=== PATIENT | female | born 1950 | race Caucasian/White ===

== ENCOUNTER 2017-03-08 10:31 | Inpatient (IN) | payer MEDICARE, SELFPAY | END 2017-03-10 13:20 | disposition home or self-care (01) | DRG 247 | PROVIDERS: Admitting Provider Family Medicine; Emergency Provider Emergency Medicine; Family Provider Family Medicine; Visit Provider Family Medicine | DX: I25.110 Atherosclerotic heart disease of native coronary artery with unstable angina pectoris (principal); E87.6 Hypokalemia; I10 Essential (primary) hypertension; I35.0 Nonrheumatic aortic (valve) stenosis | CPT/HCPCS: 36415; 70450; 80048; 80053; 82550; 82553; 84484; 85025; 92928; 93005; 93041; 93306; 93458; 94640; 94760; 99152; 99284; C1725; C1769; C1876; C9600; G0378; J1644; Q9967 ==

== ENCOUNTER → 2017-03-09 | Day surgery (SDC) | payer MEDICARE, SELFPAY | END | disposition still patient (30) | PROVIDERS: Visit Provider Internal Medicine | DX: R07.9 Chest pain, unspecified (principal) | CPT/HCPCS: 92928; 93458; C9600 ==

== ENCOUNTER 2017-03-20 17:50 | Observation (INO) | payer MEDICARE, SELFPAY ==
[2017-03-20 17:50] VITALS: BMI 29.2
[2017-03-20 20:31] VITALS: PULSE 140
[2017-03-20 20:35] VITALS: BP 124/64; PULSE 128; RESP 18; TEMP 37.3; O2SAT 93
[2017-03-20 20:57] VITALS: PULSE 70
[2017-03-20 21:00] VITALS: BP 126/53; PULSE 65; RESP 18; O2SAT 95
[2017-03-20 22:00] VITALS: BP 115/47; PULSE 58; RESP 23; O2SAT 90
--- NOTE | 2017-03-20 22:20 | HMH.EDGENADL ---
ED Disposition Clinical Impression: CAD (coronary artery disease), Atrial fibrillation with RVR Disposition: Admitted as Observation Condition on Discharge: Good - Critical Care Critical Care Time: No Attestation: On 03/20/17, the high probability of a clinically significant, sudden or life threatening deterioration of the following system(s) required my full and direct attention, intervention and personal management. The time I documented below is in addition to time spent performing reported procedures but includes the following listed in this critical care notation. Medical Decision Making - Medical Records Medical records reviewed: Yes: I reviewed the patient's medical records. Vital Signs: 1750 106/56 130 20 98.7 96% on ra - Lab Data Lab results reviewed: Yes: I reviewed the patient's lab results. MMB 0.1, TNI 0.12, NA 139, K 3.2 LO, CL 87 LO, ECO2 38.2 HI, AGAP 3.8 HI, HIL 111, TBI 0.85, TP 5.9 LO, CKI 68, ALPI 69, ASI 14 LO, ALTI 13, GLUC 101, ALB 3.1 LO, BUN 10, CA 8.0 LO, CRE 1.53 HI PT 10.6, INR 0.98, PTT 25.2 - ECG Data Tracing #1 I reviewed this ECG and interpreted as documented below: Atrial fibrillation RUR [address] segment inferior subendocardial infarction ECG initial impression date: 03/20/17 ECG initial impression time: 17:55 - Physician Consults Physician Consulted: Marvin Time: 19:30 Reason -: Admission, Pt condition Comment/Response: Accepted admission Additional Consult: Sukhwinder Time: 19:31 Reason -: Admission, Pt condition, Cardiology Eval/Care - Jeffrey Inquiry Pt receiving controlled substance: No General Adult HPI - General Chief complaint: Syncope Stated complaint: weakness,syncope Time Seen by Provider: 03/20/17 18:00 Mode of Arrival: EMS Source of Information: Patient, Spouse Limitations: No Limitations Description of Symptoms (Recalled from ER Triage Doc. by RN): Syncope episode x 2 at home both witnessed. Pt family reports recent hear cath. EMS stated pt afib on monitor - new to pt. Pt states today got dizzy and fainted . reports pt passes out when gets upset. - History of Present Illness HPI narrative: 66 yo w/f s/p cardiac cath stent x2 last week She developed syncope 1-2 minutes EMS arrived was found to be in Afig Onset (ago): hour(s) Radiation: non-radiation, other (no chest pain) Relieving factors: none Exacerbating factors: other Associated symptoms: denies other symptoms, other (feels fine in ER) Treatments prior to arrival: aspirin - Related Data Home Medications Medication Instructions Recorded Confirmed albuterol sulfate 1.25 mg/3 mL 2.5 mg INHALATION Q6H PRN 03/14/17 solution for nebulization amlodipine 5 mg tablet 5 mg PO QDAY 03/14/17 benazepril 20 mg tablet 20 mg PO QDAY 03/14/17 budesonide-formoterol HFA 160 2 puff INHALATION Q12H 03/14/17 mcg-4.5 mcg/actuation aerosol inhaler clopidogrel 75 mg tablet 75 mg PO ONCE 03/14/17 doxepin 10 mg capsule 10 mg PO QHS 03/14/17 escitalopram 20 mg tablet 10 mg PO QDAY 03/14/17 furosemide 40 mg tablet 40 mg PO QDAY 03/14/17 montelukast 10 mg tablet 10 mg PO QHS 03/14/17 pravastatin 80 mg tablet 80 mg PO QHS 03/14/17 spironolactone 25 mg tablet 25 mg PO QAM 03/14/17 tiotropium bromide 18 mcg capsule 1 cap INHALATION QDAY 03/14/17 with inhalation device Allergies Allergy/AdvReac Type Severity Reaction Status Date / Time No Known Allergies Allergy Unverified 03/08/17 10:36 [facility] History I have reviewed the patient's past medical history: Yes Medical History: Reports:: Asthma, Chronic Obstructive Pulmonary Disease (COPD), Coronary Artery Disease, Hyperlipidemia, Hypertension, Transient Ischemic Attacks (TIA), Valvular Heart Disease Other Surgeries: Yes: Other (Cyst removed) Amputation: No Fractures: No - *Social History Smoking Status: Current every day smoker Tobacco Type: cigarettes # Packs/Day (cigarettes): 1 Alcohol Intake: n
--- NOTE | 2017-03-20 22:22 | PC.NURSE ---
ER orders entered by Fly Potter on behalf of Dr. Mederos; retain his written order on chart
[2017-03-20 22:23] LABS: Microscopic, Urine URINE MICROSCOPIC (MICROSCOPIC)
--- NOTE | 2017-03-20 22:24 | ED_ITS ---
ED Disposition Clinical Impression: CAD (coronary artery disease), Atrial fibrillation with RVR Disposition: Admitted as Observation Condition on Discharge: Good - Critical Care Critical Care Time: No Attestation: On 03/20/17, the high probability of a clinically significant, sudden or life threatening deterioration of the following system(s) required my full and direct attention, intervention and personal management. The time I documented below is in addition to time spent performing reported procedures but includes the following listed in this critical care notation. Medical Decision Making - Medical Records Medical records reviewed: Yes: I reviewed the patient's medical records. Vital Signs: 1750 106/56 130 20 98.7 96% on ra - Lab Data Lab results reviewed: Yes: I reviewed the patient's lab results. MMB 0.1, TNI 0.12, NA 139, K 3.2 LO, CL 87 LO, ECO2 38.2 HI, AGAP 3.8 HI, HIL 111, TBI 0.85, TP 5.9 LO, CKI 68, ALPI 69, ASI 14 LO, ALTI 13, GLUC 101, ALB 3.1 LO, BUN 10, CA 8.0 LO, CRE 1.53 HI PT 10.6, INR 0.98, PTT 25.2 - ECG Data Tracing #1 I reviewed this ECG and interpreted as documented below: Atrial fibrillation RUR [address] segment inferior subendocardial infarction ECG initial impression date: 03/20/17 ECG initial impression time: 17:55 - Physician Consults Physician Consulted: Marvin Time: 19:30 Reason -: Admission, Pt condition Comment/Response: Accepted admission Additional Consult: Sukhwinder Time: 19:31 Reason -: Admission, Pt condition, Cardiology Eval/Care - Jeffrey Inquiry Pt receiving controlled substance: No General Adult HPI - General Chief complaint: Syncope Stated complaint: weakness,syncope Time Seen by Provider: 03/20/17 18:00 Mode of Arrival: EMS Source of Information: Patient, Spouse Limitations: No Limitations Description of Symptoms (Recalled from ER Triage Doc. by RN): Syncope episode x 2 at home both witnessed. Pt family reports recent hear cath. EMS stated pt afib on monitor - new to pt. Pt states today got dizzy and fainted . reports pt passes out when gets upset. - History of Present Illness HPI narrative: 66 yo w/f s/p cardiac cath stent x2 last week She developed syncope 1-2 minutes EMS arrived was found to be in Afig Onset (ago): hour(s) Radiation: non-radiation, other (no chest pain) Relieving factors: none Exacerbating factors: other Associated symptoms: denies other symptoms, other (feels fine in ER) Treatments prior to arrival: aspirin - Related Data Home Medications Medication Instructions Recorded Confirmed albuterol sulfate 1.25 mg/3 mL 2.5 mg INHALATION Q6H PRN 03/14/17 solution for nebulization amlodipine 5 mg tablet 5 mg PO QDAY 03/14/17 benazepril 20 mg tablet 20 mg PO QDAY 03/14/17 budesonide-formoterol HFA 160 2 puff INHALATION Q12H 03/14/17 mcg-4.5 mcg/actuation aerosol inhaler clopidogrel 75 mg tablet 75 mg PO ONCE 03/14/17 doxepin 10 mg capsule 10 mg PO QHS 03/14/17 escitalopram 20 mg tablet 10 mg PO QDAY 03/14/17 furosemide 40 mg tablet 40 mg PO QDAY 03/14/17 montelukast 10 mg tablet 10 mg PO QHS 03/14/17 pravastatin 80 mg tablet 80 mg PO QHS 03/14/17 spironolactone 25 mg tablet 25 mg PO QAM 03/14/17 tiotropium bromide 18 mcg capsule 1 cap INHALATION QDAY 03/14/17 with inhalation device Allergies Allergy/AdvReac Type Severity Lizella
[2017-03-20 22:43] VITALS: BMI 29.0
[2017-03-20 23:09] VITALS: O2SAT 88
[2017-03-20 23:31] LABS: Appearance,Urine CLEAR (Clear); Bilirubin,Urine Negative (Negative); Blood, Urine Negative (Negative); Color,Urine YELLOW (Yellow); Glucose,Urine (UA) Negative (Negative); Ketones,Urine Negative (Negative); Leukocyte Esterase,Urine Negative (Negative); Nitrate,Urine Negative (Negative); PH,Urine 7.5 (5.0-8.5); Protein,Urine Negative (Negative); Urobilinogen,Urine 0.2 EU/dl (0.2)
[2017-03-20 23:42] LABS: WBC,Urine Occasional #/hpf (0-3)
[2017-03-20 23:43] LABS: Squamous Epithelial Cell,Urine Occasional #/hpf (0-5)
[2017-03-20 23:48] LABS: Activated Partial Thrombo Time 25.2 seconds (23.6-34.0); INR 0.98 (0.9-1.1); Prothrombin Time 10.6 seconds (9.4-11.8)
[2017-03-21] VITALS (19 sets, daily range): BP systolic 100–168; BP diastolic 45–97; PULSE 53–73; RESP 14–20; TEMP 36.5–37.1; O2SAT 89–100
[2017-03-21 00:02] LABS: Alanine Aminotransferase 13 U/L (12-78); Albumin Level 3.1 gm/dL (3.4-5.0); Albumin/Globulin Ratio 1.1 (1.1-1.8); Alkaline Phosphatase 69 U/L (46-116); Anion Gap 7.2 mEq/L (5-15); Aspartate Amino Transferase 14 U/L (15-37); Bilirubin,Total 0.9 mg/dL (0.2-1.0); Blood Urea Nitrogen 10 mg/dL (7-18); Carbon Dioxide 38 mmol/L (21.0-32.0); Chloride 97 mmol/L (98-107); Creatine Kinase 66 U/L (26-192); Creatinine Clearance Estimated 38 mL/min (0-300); Creatinine,Serum 1.53 mg/dL (0.55-1.02); Estimated Glomerular Filt Rate 34 ml/min (>60); GFR (African American) 41 ML/MIN (>60); Globulin 2.8 gm/dl (1.3-3.2); Glucose 101 mg/dL (74-106); Potassium 3.2 mmoL/L (3.5-5.1); Sodium 139 mmol/L (136-145); Total Protein,Serum 5.9 gm/dL (6.4-8.2); Troponin I < 0.02 ng/ml (0.00-0.06)
[2017-03-21 00:08] LABS: CKMB Relative Index 0.8 U/L (0-4.0); Creatine Kinase MB < 0.5 mg/ml (0.0-3.6)
[2017-03-21 01:01] LABS: Hematocrit 31.9 % (37.0-47.0); Hemoglobin 10.1 g/dL (12.2-16.2); Mean Corpuscular HGB Conc 31.6 g/dL (31.8-35.4); Mean Corpuscular Hemoglobin 30.5 pg (27.0-31.2); Mean Corpuscular Volume 96.4 fl (81-99); Platelet Count 196 K/mm3 (142-424); Red Blood Count 3.31 M/mm3 (4.20-5.40); Red Cell Distribution Width 14.1 % (11.5-17.5); White Blood Count 9.3 K/mm3 (4.8-10.8)
[2017-03-21 01:02] LABS: Basophils % 0.4 % (0.1-2.0); Eosinophils # 0.1 K/mm3 (0.0-0.4); Eosinophils % 0.8 % (0.1-12.0); Lymphocytes # 1.7 K/mm3 (0.7-4.5); Lymphocytes % 17.9 K/mm3 (10-50); Monocytes # 0.8 K/mm3 (0.1-1.0); Monocytes % 8.8 % (1.7-9.3); Neutrophils # 6.5 K/mm3 (1.8-7.8); Neutrophils % 70.7 % (37.0-80.0)
[2017-03-21 02:29] LABS: Troponin I 0.02 ng/ml (0.00-0.06)
--- NOTE | 2017-03-21 04:48 | PC.NURSE ---
PT IS A&OX3. 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 PT REPORTS THAT SHE RECEIVED 2 STENTS A FEW WEEKS AGO. SHE CONVERTED FROM UNCONTROLLED AFIB TO NSR AT APPROX 2100. SHE REPORTS THAT SHE WEARS O2 @ 2LPM N/C AT HOME. VSS. SHE AMBULATES INDEPENDENTLY BUT IS WITH ASSIST X1 DUE TO STATING SHE PASSED OUT AT HOME.
--- NOTE | 2017-03-21 07:16 | HMH.PHAVTE ---
[facility] Pharmacy VTE Monitoring - Patient Demographics Admission date: 03/20/17 Report Date: 03/21/17 Time: 07:16 Allergies/Adverse Reactions: No Known Allergies Allergy (Verified 03/20/17 23:22) Height: 1.52 m Weight: 67.387 kg Patient Problems: Current Active Problems Atrial fibrillation with RVR (Acute) CAD (coronary artery disease) (Chronic) - VTE Risk Labs: VTE Related Lab Results Hgb 10.1 g/dL (12.2-16.2) L 03/20/17 Unknown Hct 31.9 % (37.0-47.0) L 03/20/17 Unknown Plt Count 196 K/mm3 (142-424) 03/20/17 Unknown PT 10.6 seconds (9.4-11.8) 03/20/17 Unknown INR 0.98 (0.9-1.1) 03/20/17 Unknown APTT 25.2 seconds (23.6-34.0) 03/20/17 Unknown BUN 10 mg/dL (7-18) 03/20/17 Unknown Creatinine 1.53 mg/dL (0.55-1.02) H 03/20/17 Unknown Estimated Creat Clear 38 mL/min (0-300) 03/20/17 Unknown Was VTE Risk Assessment Performed: Yes VTE Risk Level: Moderate Risk Clinical Trial Participant: No - Prophylaxis VTE Prophylaxis Ordered?: Yes Types of VTE Prophylaxis: TEDS Knee High, Pharmacological Pharmacologic Type: Enoxaparin
--- NOTE | 2017-03-21 07:56 | HMH.CARDCON2 ---
History of Present Illness Consult date: 03/21/17 Requesting physician: Papa Wong Consult reason: atrial fibrillation Chief complaint: Syncope History of present illness: 66 yo WF admitted through the ER for syncope and A. fib with RVR. Recently hospitalized for syncope at which time she was found to have severe RCA disease and had GHAZAL placed which was felt to be the possible cause of her syncope. Yesterday, after leaving the bathroom, she went to the kitchen (2-3 min time) and felt light headed and passed out. states she was out for a couple of minutes before regaining consciousness. No chest pain or palpitations prior to syncope. Some complaint of chest pain after waking up. No diarrhea or melena recently. No history of A. fib but she has had a TIA in the remote past. In ER, she was found to be in A. fib with RVR and started on IV diltiazem for rate control and subsequently converted to NSR. Cardiac troponins are normal overnight. Review of Systems - Review of Systems Review of systems:: unable to obtain, other, pertinent systems reviewed and negative unless documented below - *Neurologic Reports other (as per HPI) [facility] History I have reviewed the patient's past medical history: Yes Medical History: Reports:: Asthma, Atrial Fibrillation, Chronic Obstructive Pulmonary Disease (COPD), Coronary Artery Disease, Hyperlipidemia, Hypertension, Transient Ischemic Attacks (TIA), Valvular Heart Disease Denies:: Cancer, Diabetes Mellitus Type 1, Diabetes Mellitus Type 2, MRSA Comment: Echo, 02/2017. 1. Technically very difficult study because of the patient's factor and poor. acoustic windows, endocardial surfaces and valvular structures of poorly. visualized. 2. Biatrial enlargement, normal left ventricular size, visually estimated. ejection fraction 50% with no obvious regional wall motion abnormality. 3. Mildly enlarged right atrium and right ventricle, contractility of the right. ventricle is normal. 4. Abnormally aortic valve as described above, Doppler is indicative of mild. aortic stenosis as well as mild aortic insufficiency, however if clinically. indicated transesophageal echocardiogram or repeat study with better Doppler. technique is recommended. 5. Mild mitral and tricuspid regurgitation. 6. Small pericardial effusion and anterior echo free space seen. Cardiac cath, 03/08/2017: 1. Moderate aortic stenosis. 2. Slightly hyperdynamic left ventricular function. 3. Critical ostial dominant right coronary artery disease. 4. Successful stenting of the ostial dominant right coronary artery critical. disease reduced to 0% with 1 drug-eluting stent Laterality Cases: Bilateral: Cataract Other Surgeries: Yes: Other (Cyst removed) Amputation: No Fractures: No - *Social History Smoking Status: Current every day smoker Tobacco Type: cigarettes # Packs/Day (cigarettes): 1 Alcohol Intake: never Substance Use Type: denies use Occupational Status: retired Housing: house Household Members: significant other - Psychiatric History Expresses thoughts of harming self/others: None Suicide Plan Description: No Plan Pschychiatric History:: Reports:: Anxiety *Family Hx:: Heart Attack, Coronary Artery Disease, Diabetes, Hypertension Meds Home Medications Medication Instructions Recorded Confirmed Type amlodipine 5 mg tablet 5 mg PO DAILY 03/14/17 03/21/17 History benazepril 20 mg tablet 20 mg PO BID 03/14/17 03/21/17 History budesonide-formoterol HFA 160 2 puff INHALATION BID 03/14/17 03/21/17 History mcg-4.5 mcg/actuation aerosol inhaler clopidogrel 75 mg tablet 75 mg PO DAILY 03/14/17 03/21/17 History doxepin 10 mg capsule 10 mg PO HS 03/14/17 03/21/17 History escitalopram 20 mg tablet 10 mg PO DAILY 03/14/17 03/21/17 History furosemide 40 mg tablet 40 mg PO DAILY 03/14/17 03/21/17 History montelukast 10 mg tablet 10 mg PO DAILY 03/14/17 03/21/17 History pravastatin 80 mg tablet 80 mg PO HS 03/14/17 03/21/17 History
--- NOTE | 2017-03-21 08:00 | P.CONS_ITS ---
History of Present Illness Consult date: 03/21/17 Requesting physician: Papa Wong Consult reason: atrial fibrillation Chief complaint: Syncope History of present illness: 66 yo WF admitted through the ER for syncope and A. fib with RVR. Recently hospitalized for syncope at which time she was found to have severe RCA disease and had GHAZAL placed which was felt to be the possible cause of her syncope. Yesterday, after leaving the bathroom, she went to the kitchen (2-3 min time) and felt light headed and passed out. states she was out for a couple of minutes before regaining consciousness. No chest pain or palpitations prior to syncope. Some complaint of chest pain after waking up. No diarrhea or melena recently. No history of A. fib but she has had a TIA in the remote past. In ER, she was found to be in A. fib with RVR and started on IV diltiazem for rate control and subsequently converted to NSR. Cardiac troponins are normal overnight. Review of Systems - Review of Systems Review of systems:: unable to obtain, other, pertinent systems reviewed and negative unless documented below - *Neurologic Reports other (as per HPI) [facility] History I have reviewed the patient's past medical history: Yes Medical History: Reports:: Asthma, Atrial Fibrillation, Chronic Obstructive Pulmonary Disease (COPD), Coronary Artery Disease, Hyperlipidemia, Hypertension , Transient Ischemic Attacks (TIA), Valvular Heart Disease Denies:: Cancer, Diabetes Mellitus Type 1, Diabetes Mellitus Type 2, MRSA Comment: Echo, 02/2017. 1. Technically very difficult study because of the patient's factor and poor. acoustic windows, endocardial surfaces and valvular structures of poorly. visualized. 2. Biatrial enlargement, normal left ventricular size, visually estimated. ejection fraction 50% with no obvious regional wall motion abnormality. 3. Mildly enlarged right atrium and right ventricle, contractility of the right. ventricle is normal. 4. Abnormally aortic valve as described above, Doppler is indicative of mild. aortic stenosis as well as mild aortic insufficiency, however if clinically. indicated transesophageal echocardiogram or repeat study with better Doppler. technique is recommended. 5. Mild mitral and tricuspid regurgitation. 6. Small pericardial effusion and anterior echo free space seen. Cardiac cath, : 1. Moderate aortic stenosis. 2. Slightly hyperdynamic left ventricular function. 3. Critical ostial dominant right coronary artery disease. 4. Successful stenting of the ostial dominant right coronary artery critical. disease reduced to 0% with 1 drug-eluting stent Laterality Cases: Bilateral: Cataract Other Surgeries: Yes: Other (Cyst removed) Amputation: No Fractures: No - *Social History Smoking Status: Current every day smoker Tobacco Type: cigarettes # Packs/Day (cigarettes): 1 Alcohol Intake: never Substance Use Type: denies use Occupational Status: retired Housing: house Household Members: significant other - Psychiatric History Expresses thoughts of harming self/others: None Suicide Plan Description: No Plan Pschychiatric History:: Reports:: Anxiety *Family Hx:: Heart Attack, Coronary Artery Disease, Diabetes, Hypertension Meds Home Medications Medication Instructions Recorded Confirmed Type amlodipine 5 mg tablet 5 mg PO DAILY 03/14/17 03/21/17 History benazepril 20 mg tablet 20 mg PO BID 03/14/17 03/21/17 History budesonide-formoterol HFA 160 2 puff INHALATION BID 03/14/17 03/21/17 History mcg-4.5 mcg/actuation aerosol inhaler clopidogrel 75 mg tablet 75
[2017-03-21 08:02] LABS: Anion Gap 6.6 mEq/L (5-15); Blood Urea Nitrogen 10 mg/dL (7-18); Carbon Dioxide 35 mmol/L (21.0-32.0); Chloride 101 mmol/L (98-107); Creatinine Clearance Estimated 44 mL/min (0-300); Creatinine,Serum 1.33 mg/dL (0.55-1.02); Estimated Glomerular Filt Rate 40 ml/min (>60); GFR (African American) 48 ML/MIN (>60); Glucose 85 mg/dL (74-106); Potassium 3.6 mmoL/L (3.5-5.1); Sodium 139 mmol/L (136-145); Troponin I < 0.02 ng/ml (0.00-0.06)
--- NOTE | 2017-03-21 08:33 | HMH.HP ---
*Admission Date: 03/20/17 <Ni Rivas 03/21/17 08:39> *Chief complaint: syncope <Ni Rivas 03/21/17 08:39> *History of present illness: Ms Scanlon is a 66 year old female with a history of CAD with LHC and stent placement 03/10/[address] Pretty, COPD, previous syncope, bradycardia, and CVA who presented to [facility] ER atfter she had a syncopal episode when walking from one room to another. She states she did have some brief CP when she first got OOB. She denies SOB. The witnessed the episode and states she was only out briefly. When checking her O2 sat with their pulse OX he noted her HR going from 40's up to 120's. Thus he he called EMS who brought her to the ER. They documented At fib. In the ER she was found to be in atrial fib with RVR and was started on a cardiazem gtt after which she did convert to a RSR. She was admitted for further evaluation and treatment and cardiac consult. <Ni Riavs 03/21/17 14:10> [facility] History Medical History: Reports:: Asthma, Atrial Fibrillation, Chronic Obstructive Pulmonary Disease (COPD), Coronary Artery Disease, Hyperlipidemia, Hypertension, Transient Ischemic Attacks (TIA), Valvular Heart Disease Denies:: Cancer, Diabetes Mellitus Type 1, Diabetes Mellitus Type 2, MRSA <Ni Rivas 03/21/17 14:10> Comment: history of TIA <Ni Rivas 03/21/17 14:10> Laterality Cases: Bilateral: Cataract <Ni Rivas 03/21/17 08:39> Other Surgeries: Yes: Other (cardiac stent placement 03/10/17) <Ni Rivas 03/21/17 14:10> Amputation: No <Ni Rivas 03/21/17 08:39> Fractures: No <Ni Rivas 03/21/17 08:39> - *Social History Smoking Status: Current every day smoker <Ni Rivas 03/21/17 08:39> Tobacco Type: cigarettes <Ni Rivas 03/21/17 08:39> # Packs/Day (cigarettes): 1 <Ni Rivas 03/21/17 08:39> Alcohol Intake: never <Ni Rivas 03/21/17 08:39> Substance Use Type: denies use <Ni Rivas 03/21/17 08:39> Occupational Status: retired <Ni Rivas 03/21/17 08:39> Housing: house <Ni Rivas 03/21/17 08:39> Household Members: significant other <Ni Rivas 03/21/17 08:39> - Psychiatric History Expresses thoughts of harming self/others: None <Ni Rivas 03/21/17 08:39> Suicide Plan Description: No Plan <Ni Rivas 03/21/17 08:39> Pschychiatric History:: Reports:: Anxiety <Ni Rivas 03/21/17 08:39> *Family Hx:: Heart Attack, Coronary Artery Disease, Diabetes, Hypertension <Ni Rivas 03/21/17 08:39> Review of Systems - Constitutional Denies body ache(s) <RivasNi 03/21/17 13:28> - ENT Denies sore throat <RivasNi 03/21/17 13:28> - *Cardiovascular Reports chest pain, Reports shortness of breath, Reports irregular heart rhythm, Denies leg swelling <EvelynNi 03/21/17 13:28> - *Respiratory Reports shortness of breath, Denies cough <RivasNi 03/21/17 13:28> - *Gastrointestinal Denies abdominal pain, Denies nausea, Denies vomiting <RivasNi 03/21/17 13:28> - *Musculoskeletal Denies abnormal walking, Denies muscle weakness, Denies body aches <RivasNi 03/21/17 13:28> - *Neurologic Reports dizziness, Reports other (as per HPI), Denies headache(s), Denies seizure-like activity <RivasNi 03/21/17 13:28> Comments: syncopal episode <RivasNi 03/21/17 13:28> Meds Home Medications Medication Instructions Recorded Confirmed Type Albuterol Sulfate [Albuterol 2.5 mg IH QID 03/21/17 03/21/17 History 0.083% 2.5mg/3mL neb] Amlodipine Besylate [Norvasc 5mg 5 mg PO DAILY 03/21/17 03/21/17 History tablet] Amoxicillin/Potassium Clav 1 tab PO BID 03/21/17 03/21/17 History [Amox-Clav 875-125 mg Tablet] Aspirin [Aspir-Low] 81 mg PO DAILY 03/21/17 03/21/17 History Benazepril HCl [Benazepril HCl] 20 mg PO DAILY 03/21/17 03/21/17 History Budesonide/Formoterol Fumarate 2 puffs IH BID 03/21/17
--- NOTE | 2017-03-21 08:39 | P.HP_ITS ---
*Admission Date: 03/20/17 <Ni Rivas 03/21/17 08:39> *Chief complaint: syncope <Ni Rivas 03/21/17 08:39> *History of present illness: Ms Scanlon is a 66 year old female with a history of CAD with LHC and stent placement 03/10/[address] Pretty, COPD, previous syncope, bradycardia, and CVA who presented to [facility] ER atfter she had a syncopal episode when walking from one room to another. She states she did have some brief CP when she first got OOB. She denies SOB. The witnessed the episode and states she was only out briefly. When checking her O2 sat with their pulse OX he noted her HR going from 40's up to 120's. Thus he he called EMS who brought her to the ER. They documented At fib. In the ER she was found to be in atrial fib with RVR and was started on a cardiazem gtt after which she did convert to a RSR. She was admitted for further evaluation and treatment and cardiac consult. <Ni Rivas 03/21/17 14:10> [facility] History Medical History: Reports:: Asthma, Atrial Fibrillation, Chronic Obstructive Pulmonary Disease (COPD), Coronary Artery Disease, Hyperlipidemia, Hypertension , Transient Ischemic Attacks (TIA), Valvular Heart Disease Denies:: Cancer, Diabetes Mellitus Type 1, Diabetes Mellitus Type 2, MRSA < Ni Rivas 03/21/17 14:10> Comment: history of TIA <Ni Rivas 03/21/17 14:10> Laterality Cases: Bilateral: Cataract <Ni Rivas 03/21/17 08:39> Other Surgeries: Yes: Other (cardiac stent placement 03/10/17) <Ni Rivas 03/21/17 14:10> Amputation: No <Ni Rivas 03/21/17 08:39> Fractures: No <Ni Rivas 03/21/17 08:39> - *Social History Smoking Status: Current every day smoker <Ni Rivas 03/21/17 08:39> Tobacco Type: cigarettes <Ni Rivas 03/21/17 08:39> # Packs/Day (cigarettes): 1 <Ni Rivas 03/21/17 08:39> Alcohol Intake: never <Ni Rivas 03/21/17 08:39> Substance Use Type: denies use <Ni Rivas 03/21/17 08:39> Occupational Status: retired <Ni Rivas 03/21/17 08:39> Housing: house <Ni Rivas 03/21/17 08:39> Household Members: significant other <Ni Rivas 03/21/17 08:39> - Psychiatric History Expresses thoughts of harming self/others: None <Ni Rivas 03/21/17 08: 39> Suicide Plan Description: No Plan <Ni Rivas 03/21/17 08:39> Pschychiatric History:: Reports:: Anxiety <Ni Rivas 03/21/17 08:39> *Family Hx:: Heart Attack, Coronary Artery Disease, Diabetes, Hypertension < Ni Rivas 03/21/17 08:39> Review of Systems - Constitutional Denies body ache(s) <RivasNi 03/21/17 13:28> - ENT Denies sore throat <RivasNi 03/21/17 13:28> - *Cardiovascular Reports chest pain, Reports shortness of breath, Reports irregular heart rhythm , Denies leg swelling <EvelynNi 03/21/17 13:28> - *Respiratory Reports shortness of breath, Denies cough <RivasNi 03/21/17 13:28> - *Gastrointestinal Denies abdominal pain, Denies nausea, Denies vomiting <RivasNi 13:28> - *Musculoskeletal Denies abnormal walking, Denies muscle weakness, Denies body aches <Rivas Ni 03/21/17 13:28> - *Neurologic Reports dizziness, Reports other (as per HPI), Denies headache(s), Denies seizure-like activity <RivasNi 03/21/17 13:28> Comments: syncopal episode <RivasNi 03/21/17 13:28> Meds Home Medications Medication Instructions Recorded Confirmed Type Albuterol Sulfate [Albuterol 2.5 mg IH QID 03/21/17 03/21/17 History 0.083% 2.5mg/3mL neb] Am
[2017-03-21 09:04] LABS: Free Thyroxine Index 3.2 ug/dL (5.93-13.13); T4 (Thyroxine) 8.9 ug/dl (4.7-13.3); Thyroid Stimulating Hormone 2.66 uIU/ml (0.358-3.740); Triiodothryronine (T3) Uptake 36 % (31-39)
--- NOTE | 2017-03-21 09:46 | CI_ITS ---
Cerebrovascular Exam Indications: 780.2 Syncope and collapse. 433.10 Occlusion/stenosis of carotid artery without cerebral infarction. IMPRESSIONS 1. The bilateral vertebral arteries are patent with normal antegrade flow. 2. Study suggests 20-49%upper end of scale)stenosis involving the right internal carotid artery and the left internal carotid artery. Disease progression from the study of 21-Feb-2012. History: Coronary artery disease. Risk factors: Current tobacco use. Hypertension. Hyperlipidemia. Carotid duplex study. Complete study and Doppler flow study including spectral analysis, color and richardson scale imaging. Height: Height: 152.4cm. Height: 60in. Weight: Weight: 67.1kg. Weight: 147.7lb. Body mass index: BMI: 28.9kg/m^2. Body surface area: BSA: 1.71m^2. Location: Bedside. Patient status: Inpatient. Tables: Arterial flow: + +--------+--------+ Location V sys V ed + +--------+--------+ Right CCA - proximal 86.4cm/s 15.7cm/s + +--------+--------+ Right CCA - distal 89.6cm/s 15.7cm/s + +--------+--------+ Right ECA 220cm/s -------- + +--------+--------+ Right ICA - proximal 155cm/s 30.3cm/s + +--------+--------+ Right ICA - mid 113cm/s 14.6cm/s + +--------+--------+ Right ICA - distal 127cm/s 21.3cm/s + +--------+--------+ Right vertebral 106cm/s -------- + +--------+--------+ Left CCA - proximal 76.3cm/s 16.8cm/s + +--------+--------+ Left CCA - distal 89.8cm/s 16.8cm/s + +--------+--------+ Left ECA 93.2cm/s -------- + +--------+--------+ Left ICA - proximal 112cm/s 19.1cm/s + +--------+--------+ Left ICA - mid 107cm/s 16.8cm/s + +--------+--------+ Left ICA - distal 120cm/s 20.2cm/s + +--------+--------+ Left vertebral 86.4cm/s -------- + +--------+--------+ Velocity ratios: + + + + + + Right, V sys Right, V ed Left, V sys Left, V ed + + + + + + Max ICA/dist CCA 1.73 1.93 1.34 1.2 + + + + + + (Report amended ) Electronically signed by: Pino Azar [id number]
[2017-03-21 11:27] LABS: Magnesium 2.2 mg/dL (1.4-2.2); Phosphorous 3.2 mg/dL (2.4-4.9)
[2017-03-22] VITALS (9 sets, daily range): BP systolic 99–154; BP diastolic 48–60; PULSE 50–94; RESP 16–17; TEMP 36.7–36.8; O2SAT 95–99
--- NOTE | 2017-03-22 06:31 | PC.NURSE ---
pt wants abath later after breakfast. nurse notified
--- NOTE | 2017-03-22 07:50 | HMH.CARDPN2 ---
Subjective PN (PG) Date: 03/22/17 Time: 07:50 Principal diagnosis: A. fib, Syncope Interval history: No complaints overnight. Continues in NSR. Wants to go home. Outpatient JENNIFER has been ordered but is awaiting insurance approval. PN Exam ([facility] [place] Owned) Vital signs: Temp Pulse Resp BP Pulse Ox 98.1 F 64 16 113/60 97 03/22/17 04:17 03/22/17 06:17 03/22/17 04:36 03/22/17 06:17 03/22/17 06:17 - Constitutional no acute distress - Routine Respiratory Exam Present: CTA bilaterally - Routine Cardiovascular Exam Present: RRR, murmur A/P Progress Note ([facility] [place] Owned) (1) Atrial fibrillation with RVR Status: Acute Assessment and plan: Maintaining NSR on cardizem. Xarelto started last evening for elevated CHADS score. Current Visit: Yes (2) CAD (coronary artery disease) Status: Chronic Assessment and plan: Clinically stable on DAPT. Current Visit: Yes (3) Aortic valve stenosis Status: Chronic Assessment and plan: Plan for JENNIFER when approved by insurance. Current Visit: No (4) COPD (chronic obstructive pulmonary disease) Status: Chronic Current Visit: No (5) Carotid artery stenosis Status: Chronic Assessment and plan: Mild to moderate by u/s this admission. Continue ASA. Current Visit: No (6) Dyspnea Status: Chronic Current Visit: No (7) HLD (hyperlipidemia) Status: Chronic Current Visit: No (8) HTN (hypertension) Status: Chronic Current Visit: No (9) Pulmonary emphysema Status: Chronic Current Visit: No (10) Tobacco use Status: Chronic Current Visit: No
--- NOTE | 2017-03-22 07:53 | P.PN_ITS ---
Subjective PN (PG) Date: 03/22/17 Time: 07:50 Principal diagnosis: A. fib, Syncope Interval history: No complaints overnight. Continues in NSR. Wants to go home. Outpatient JENNIFER has been ordered but is awaiting insurance approval. PN Exam ([facility] Owned) Vital signs: Temp Pulse Resp BP Pulse Ox 98.1 F 64 16 113/60 97 03/22/17 04:17 03/22/17 06:17 03/22/17 04:36 03/22/17 06:17 03/22/17 06:17 - Constitutional no acute distress - Routine Respiratory Exam Present: CTA bilaterally - Routine Cardiovascular Exam Present: RRR, murmur A/P Progress Note ([facility] Owned) (1) Atrial fibrillation with RVR Status: Acute Assessment and plan: Maintaining NSR on cardizem. Xarelto started last evening for elevated CHADS score. Current Visit: Yes (2) CAD (coronary artery disease) Status: Chronic Assessment and plan: Clinically stable on DAPT. Current Visit: Yes (3) Aortic valve stenosis Status: Chronic Assessment and plan: Plan for JENNIFER when approved by insurance. Current Visit: No (4) COPD (chronic obstructive pulmonary disease) Status: Chronic Current Visit: No (5) Carotid artery stenosis Status: Chronic Assessment and plan: Mild to moderate by u/s this admission. Continue ASA. Current Visit: No (6) Dyspnea Status: Chronic Current Visit: No (7) HLD (hyperlipidemia) Status: Chronic Current Visit: No (8) HTN (hypertension) Status: Chronic Current Visit: No (9) Pulmonary emphysema Status: Chronic Current Visit: No (10) Tobacco use Status: Chronic Current Visit: No
--- NOTE | 2017-03-22 08:40 | HMH.ACPN ---
Internal Medicine - PN: Subj *Date: 03/22/17 *Time: 08:40 Interval history: Patient with no new complaints today, wants to go home. Exam Vital signs and Labs for Last 24 Hours: Temp Pulse Resp BP Pulse Ox 98.1 F 64 16 113/60 97 03/22/17 04:17 03/22/17 06:17 03/22/17 04:36 03/22/17 06:17 03/22/17 06:17 Laboratory Results - last 24 hr 03/21/17 07:40: TSH 2.66, Free T4 Index 3.2 L, Thyroxine (T4) 8.9, T3 Uptake 36 03/21/17 07:40: Phosphorus 3.2, Magnesium 2.2 Vital Signs Temp Pulse Pulse Pulse Resp BP Pulse Ox 03/22/17 06:17 64 113/60 97 03/22/17 04:36 64 16 154/60 97 03/22/17 04:17 98.1 F 03/22/17 04:00 60 94 H 97 03/22/17 03:30 50 L 03/22/17 02:00 50 L 17 114/48 95 03/22/17 00:21 98.2 F 03/22/17 00:00 50 L 57 L 99/60 99 03/21/17 22:00 70 17 100/53 100 03/21/17 20:04 97.7 F 03/21/17 20:00 60 63 168/74 96 03/21/17 17:05 64 20 138/58 99 03/21/17 16:00 98.3 F 60 61 18 124/64 100 03/21/17 15:33 63 20 143/53 99 03/21/17 14:00 73 18 138/97 97 03/21/17 13:00 66 20 110/49 100 03/21/17 12:00 60 66 16 139/67 98 03/21/17 11:00 56 L 18 134/67 98 03/21/17 10:00 59 L 16 129/46 95 03/21/17 09:00 60 14 138/53 97 Intake and Output 03/21/17 03/22/17 03/22/17 19:59 03:59 11:59 Intake Total 1185 / 1185 738 / 738 240 / 240 Balance 1185 / 1185 738 / 738 240 / 240 Intake: Intake, Oral Amount 360 / 360 240 / 240 Intake, Other Amount 738 / 738 Intake, Total IV Amount 825 / 825 0.9% NaCl w/20mEq KCL 1,000 ml 825 / 825 @ 75 mls/hr IV .[id number] [facility] Rx# :[id number] Other: Intake, Other Source Saline Solution Number of Unmeasured Voids 4 1 Patient Weight 03/22/17 11:59 Weight 134 lb 4 oz I & O for Last 24 hours: Intake & Output 03/19/17 03/20/17 03/21/17 03/22/17 11:59 11:59 11:59 11:59 Intake Total 595 / 595 2163 / 2163 Balance 595 / 595 2163 / 2163 - Constitutional no acute distress - *Routine Respiratory Exam Present: CTA bilaterally - *Routine Cardiovascular Exam Present: RRR Assessment and Plan (1) Atrial fibrillation Current visit: Yes Status: Acute Category: Medical Code(s): I48.91 - Unspecified atrial fibrillation (2) Atrial fibrillation with RVR Current visit: Yes Status: Resolved Category: Medical Code(s): I48.91 - Unspecified atrial fibrillation (3) Syncope Current visit: Yes Status: Acute Category: Medical Code(s): R55 - Syncope and collapse (4) CAD (coronary artery disease) Current visit: Yes Status: Resolved Qualifiers: Category: Medical Code(s): I25.10 - Atherosclerotic heart disease of [place] coronary artery without angina pectoris (5) Aortic valve stenosis Current visit: No Status: Chronic Qualifiers: Cardiac valve disease etiology: etiology unspecified Qualified Code(s): I35.0 - Nonrheumatic aortic (valve) stenosis Category: Medical Code(s): I35.0 - Nonrheumatic aortic (valve) stenosis (6) COPD (chronic obstructive pulmonary disease) Current visit: No Status: Chronic Qualifiers: COPD type: unspecified COPD Qualified Code(s): J44.9 - Chronic obstructive pulmonary disease, unspecified Category: Medical Code(s): J44.9 - Chronic obstructive pulmonary disease, unspecified (7) Carotid artery stenosis Current visit: No Status: Chronic Qualifiers: Laterality: bilateral Qualified Code(s): I65.23 - Occlusion and stenosis of bilateral carotid arteries Category: Medical Code(s): I65.29 - Occlusion and stenosis of unspecified carotid artery (8) Dyspnea Current visit: No Status: Chronic Qualifiers: Dyspnea type: dyspnea on exertion Qualified Code(s): R06.09 - Other forms of dyspnea Category: Medical Code(s): R06.00 - Dyspnea, unspecified - Assess
--- NOTE | 2017-03-22 08:43 | P.PN_ITS ---
Internal Medicine - PN: Subj *Date: 03/22/17 *Time: 08:40 Interval history: Patient with no new complaints today, wants to go home. Exam Vital signs and Labs for Last 24 Hours: Temp Pulse Resp BP Pulse Ox 98.1 F 64 16 113/60 97 03/22/17 04:17 03/22/17 06:17 03/22/17 04:36 03/22/17 06:17 03/22/17 06:17 Laboratory Results - last 24 hr 03/21/17 07:40: TSH 2.66, Free T4 Index 3.2 L, Thyroxine (T4) 8.9, T3 Uptake 36 03/21/17 07:40: Phosphorus 3.2, Magnesium 2.2 Vital Signs Temp Pulse Pulse Pulse Resp BP Pulse Ox 03/22/17 06:17 64 113/60 97 03/22/17 04:36 64 16 154/60 97 03/22/17 04:17 98.1 F 03/22/17 04:00 60 94 H 97 03/22/17 03:30 50 L 03/22/17 02:00 50 L 17 114/48 95 03/22/17 00:21 98.2 F 03/22/17 00:00 50 L 57 L 99/60 99 03/21/17 22:00 70 17 100/53 100 03/21/17 20:04 97.7 F 03/21/17 20:00 60 63 168/74 96 03/21/17 17:05 64 20 138/58 99 03/21/17 16:00 98.3 F 60 61 18 124/64 100 03/21/17 15:33 63 20 143/53 99 03/21/17 14:00 73 18 138/97 97 03/21/17 13:00 66 20 110/49 100 03/21/17 12:00 60 66 16 139/67 98 03/21/17 11:00 56 L 18 134/67 98 03/21/17 10:00 59 L 16 129/46 95 03/21/17 09:00 60 14 138/53 97 Intake and Output 03/21/17 03/22/17 03/22/17 19:59 03:59 11:59 Intake Total 1185 / 1185 738 / 738 240 / 240 Balance 1185 / 1185 738 / 738 240 / 240 Intake: Intake, Oral Amount 360 / 360 240 / 240 Intake, Other Amount 738 / 738 Intake, Total IV Amount 825 / 825 0.9% NaCl w/20mEq KCL 1,000 ml 825 / 825 @ 75 mls/hr IV .[id number] [facility] Rx# :[id number] Other: Intake, Other Source Saline Solution Number of Unmeasured Voids 4 1 Patient Weight 03/22/17 11:59 Weight 134 lb 4 oz I & O for Last 24 hours: Intake & Output 03/19/17 03/20/17 03/21/17 03/22/17 11:59 11:59 11:59 11:59 Intake Total 595 / 595 2163 / 2163 Balance 595 / 595 2163 / 2163 - Constitutional no acute distress - *Routine Respiratory Exam Present: CTA bilaterally - *Routine Cardiovascular Exam Present: RRR Assessment and Plan (1) Atrial fibrillation Current visit: Yes Status: Acute Category: Medical Code(s): I48.91 - Unspecified atrial fibrillation (2) Atrial fibrillation with RVR Current visit: Yes Status: Resolved Category: Medical Code(s): I48.91 - Unspecified atrial fibrillation (3) Syncope Current visit: Yes Status: Acute Category: Medical Code(s): R55 - Syncope and collapse (4) CAD (coronary artery disease) Current visit: Yes Status: Resolved Qualifiers: Category: Medical Code(s): I25.10 - Atherosclerotic heart disease of [place] coronary artery without angina pectoris (5) Aortic valve stenosis Current visit: No Status: Chronic Qualifiers: Cardiac valve disease etiology: etiology unspecified Qualified Code(s): I35.0 - Nonrheumatic aortic (valve) stenosis Category: Medical Code(s): I35.0 - Nonrheumatic aortic (valve) stenosis (6
--- NOTE | 2017-03-22 18:35 | HMH.DCSUM ---
General - General Admission date: 03/20/17 Discharge date: 03/22/17 HPI HPI: Ms Scanlon is a 66 year old female with a history of CAD with LHC and stent placement 03/10/[address] Pretty, COPD, previous syncope, bradycardia, and CVA who presented to [facility] ER atfter she had a syncopal episode when walking from one room to another. She states she did have some brief CP when she first got OOB. She denies SOB. The witnessed the episode and states she was only out briefly. When checking her O2 sat with their pulse OX he noted her HR going from 40's up to 120's. Thus he he called EMS who brought her to the ER. They documented At fib. In the ER she was found to be in atrial fib with RVR and was started on a cardiazem gtt after which she did convert to a RSR. She was admitted for further evaluation and treatment and cardiac consult. Objective Vital signs: Temp Pulse Resp BP Pulse Ox 98.1 F 82 16 113/60 97 03/22/17 04:17 03/22/17 08:00 03/22/17 04:36 03/22/17 06:17 03/22/17 06:17 Narrative: *Routine HEENT Exam Head: Present: normocephalic, atraumatic Eye: Present: PERRL ENT: Present: mucous membranes moist, oropharynx clear - *Routine Neck Exam Present: supple, full ROM. Absent: carotid bruit, lymphadenopathy, thyromegaly, swelling - *Routine Respiratory Exam Present: CTA bilaterally (A&P). Absent: respiratory distress, rhonchi, wheezes, crackles - *Routine Cardiovascular Exam Present: RRR - *Routine Abdominal Exam Present: soft, normoactive bowel sounds. Absent: tenderness, distended, guarding - *Routine Extremities Exam Present: full ROM. Absent: edema, calf tenderness - *Routine Neurological Exam Present: alert, oriented X3 Hospital Course Hospital Course: She had a carotid doppler showing 20-49% stenosis of the bilateral carotid arteries. The patient remained in sinus rhythm and was switched to oral cardizem. Cardiology saw her and an outpatient JENNIFER was ordered but was awaiting insurance approval. She was started on xarelto and was stable to be discharged home with close outpatient cardiology f/u. DS: Diagnosis - Discharge Diagnosis (1) Atrial fibrillation Status: Acute (2) Syncope Status: Acute (3) Aortic valve stenosis Status: Chronic (4) COPD (chronic obstructive pulmonary disease) Status: Chronic (5) Carotid artery stenosis Status: Chronic (6) Dyspnea Status: Chronic (7) HLD (hyperlipidemia) Status: Chronic (8) HTN (hypertension) Status: Chronic Meds Home Medications Medication Instructions Recorded Confirmed Type Albuterol Sulfate [Albuterol 2.5 mg IH QID 03/21/17 03/21/17 History 0.083% 2.5mg/3mL neb] Aspirin [Aspir-Low] 81 mg PO DAILY 03/21/17 03/21/17 History Benazepril HCl 20 mg PO DAILY 03/21/17 03/21/17 History Budesonide/Formoterol Fumarate 2 puffs IH BID 03/21/17 03/21/17 History [Symbicort 160-4.5 Mcg Inhaler] Clopidogrel Bisulfate [Plavix 75mg 75 mg PO DAILY 03/21/17 03/21/17 History Tab] Doxepin HCl [Sinequan 10mg capsule] 10 mg PO HS 03/21/17 03/21/17 History Escitalopram Oxalate 20 mg PO DAILY 03/21/17 03/21/17 History Furosemide [Furosemide 40MG tAB] 40 mg PO DAILY 03/21/17 03/21/17 History Metoprolol Succinate 50 mg PO BID 03/21/17 03/21/17 History Montelukast Sodium [Montelukast 10 mg PO HS 03/21/17 03/21/17 History 10mg Tab] Pravastatin Sodium 80 mg PO HS 03/21/17 03/21/17 History Sennosides/Docusate Sodium [Stool 1 each PO HS 03/21/17 03/21/17 History Softener Tablet] Spironolactone [Spironolactone 25 mg PO DAILY 03/21/17 03/21/17 History 25mg Tab] Tiotropium Manquin [Spiriva 1 cap IH DAILY 03/21/17 03/21/17 History 18mcg/puff inhaler] Allergies Allergy/AdvReac Type Severity Reaction Status Date / Time No Known Allergies Allergy Verified 03/20/17 23:22 Disposition Disposition: Home, Self-Care
--- NOTE | 2017-03-22 18:40 | P.DS_ITS ---
General - General Admission date: 03/20/17 Discharge date: 03/22/17 HPI HPI: Ms Scanlon is a 66 year old female with a history of CAD with LHC and stent placement 03/10/[address] Pretty, COPD, previous syncope, bradycardia, and CVA who presented to [facility] ER atfter she had a syncopal episode when walking from one room to another. She states she did have some brief CP when she first got OOB. She denies SOB. The witnessed the episode and states she was only out briefly. When checking her O2 sat with their pulse OX he noted her HR going from 40's up to 120's. Thus he he called EMS who brought her to the ER. They documented At fib. In the ER she was found to be in atrial fib with RVR and was started on a cardiazem gtt after which she did convert to a RSR. She was admitted for further evaluation and treatment and cardiac consult. Objective Vital signs: Temp Pulse Resp BP Pulse Ox 98.1 F 82 16 113/60 97 03/22/17 04:17 03/22/17 08:00 03/22/17 04:36 03/22/17 06:17 03/22/17 06:17 Narrative: *Routine HEENT Exam Head: Present: normocephalic, atraumatic Eye: Present: PERRL ENT: Present: mucous membranes moist, oropharynx clear - *Routine Neck Exam Present: supple, full ROM. Absent: carotid bruit, lymphadenopathy, thyromegaly , swelling - *Routine Respiratory Exam Present: CTA bilaterally (A&P). Absent: respiratory distress, rhonchi, wheezes , crackles - *Routine Cardiovascular Exam Present: RRR - *Routine Abdominal Exam Present: soft, normoactive bowel sounds. Absent: tenderness, distended, guarding - *Routine Extremities Exam Present: full ROM. Absent: edema, calf tenderness - *Routine Neurological Exam Present: alert, oriented X3 Hospital Course Hospital Course: She had a carotid doppler showing 20-49% stenosis of the bilateral carotid arteries. The patient remained in sinus rhythm and was switched to oral cardizem. Cardiology saw her and an outpatient JENNIFER was ordered but was awaiting insurance approval. She was started on xarelto and was stable to be discharged home with close outpatient cardiology f/u. DS: Diagnosis - Discharge Diagnosis (1) Atrial fibrillation Status: Acute (2) Syncope Status: Acute (3) Aortic valve stenosis Status: Chronic (4) COPD (chronic obstructive pulmonary disease) Status: Chronic (5) Carotid artery stenosis Status: Chronic (6) Dyspnea Status: Chronic (7) HLD (hyperlipidemia) Status: Chronic (8) HTN (hypertension) Status: Chronic Meds Home Medications Medication Instructions Recorded Confirmed Type Albuterol Sulfate [Albuterol 2.5 mg IH QID 03/21/17 03/21/17 History 0.083% 2.5mg/3mL neb] Aspirin [Aspir-Low] 81 mg PO DAILY 03/21/17 03/21/17 History Benazepril HCl 20 mg PO DAILY 03/21/17 03/21/17 History Budesonide/Formoterol Fumarate 2 puffs IH BID 03/21/17 03/21/17 History [Symbicort 160-4.5 Mcg Inhaler] Clopidogrel Bisulfate [Plavix 75mg 75 mg PO DAILY 03/21/17 03/21/17 History Tab] Doxepin HCl [Sinequan 10mg capsule] 10 mg PO HS 03/21/17 03/21/17 History Escitalopram Oxalate 20 mg PO DAILY 03/21/17 03/21/17 History Furosemide [Furosemide 40MG tAB] 40 mg PO DAILY 03/21/17 03/21/17 History Metoprolol Succinate 50 mg PO BID 03/21/17 03/21/17 History Montelukast Sodium [Montelukast 10 mg PO HS
== END 2017-03-22 10:00 | disposition home or self-care (01) ==
LOC: ER 21:51 → ICU 21:55 → 2ND 03-21 19:11
PROVIDERS: Physician Assistant; Admitting Provider Family Medicine; Emergency Provider Emergency Medicine; Family Provider Family Medicine; PCP Family Medicine; Visit Provider Family Medicine
DX: I48.91 Unspecified atrial fibrillation; I25.10 Atherosclerotic heart disease of native coronary artery without angina pectoris; I65.23 Occlusion and stenosis of bilateral carotid arteries; J44.9 Chronic obstructive pulmonary disease, unspecified; I10 Essential (primary) hypertension
CPT/HCPCS: 36415; 80048; 80053; 81001; 82550; 82553; 83735; 84100; 84436; 84443; 84479; 84484; 85025; 85610; 85730; 93005; 93880; 96360; 96365; 96372; 99283; G0378

== ENCOUNTER 2017-03-24 11:35 | Day surgery (SDC) | payer MEDICARE, SELFPAY ==
[2017-03-24] VITALS (8 sets, daily range): BP systolic 100–139; BP diastolic 53–79; PULSE 60–72; RESP 16–20; O2SAT 96–98; BMI 27.7
--- NOTE | 2017-03-24 11:50 | CA_ITS ---
Procedure: Transesophageal echocardiogram Indication for procedure: Shortness of breath abnormally aortic valve, aortic insufficiency aortic stenosis. Procedure: Patient was brought in to the cardiac catheter lab holding area in hemodynamically stable condition, after the informed consent, conscious sedation was provided by anesthesiologist, local anesthesia was applied and transesophageal echocardiogram was performed without difficulty, patient tolerated the procedure well. Findings: 1. Left atrium is moderately enlarged, left atrial appendage is free of thrombus, there is good appendage flow by spectral Doppler. 2. Right atrium is moderately enlarged, there is no thrombus seen in the right atrium. 3. The intra-atrial septum is intact, there is no flow across the atrial atrial septum, agitated saline contrast study fails to identify intracardiac shunt. 4. The aortic valve is thickened and calcified with mild restriction the leaflet mobility. Morphologically there is mild aortic stenosis, there is moderate aortic insufficiency present. 5. The mitral valve has mild mitral annular calcification, there is no mitral stenosis. There is mild mitral regurgitation present. 6. Tricuspid valve is minimally thickened, there is mild to moderate tricuspid regurgitation. 7. Pulmonic valve is minimally thickened and fibrosed. 8. There is small circumferential pericardial effusion noted. 9. The right ventricle is mildly enlarged with normal contractility. 10. The left ventricle is normal size, visually estimated ejection fraction 55% with no obvious regional wall motion abnormality. 11. Ascending, arch and descending thoracic aorta there is no aneurysm or dissection, nonmobile by atheromatous plaque seen in the arch and descending thoracic aorta. Conclusion: 1. Biatrial enlargement, normal left ventricular size, visually estimated ejection fraction 55% with no obvious regional wall motion abnormality. 2. Mildly enlarged right ventricle with normal contractility. 3. Thickened and calcified aortic valve, morphologically there is mild aortic stenosis, there is moderate aortic insufficiency present. 4. Mild mitral and tricuspid regurgitation. 5. Agitated some contrast study fails to identify intracardiac shunt. 6. There is small circumferential pericardial effusion noted. 7. Nonmobile atheromatous plaque seen in the arch and descending thoracic aorta.
--- NOTE | 2017-03-24 14:27 | P.PN_ITS ---
[facility] Anesthesia Checklist - Patient Identification Patient Identification: Arm Band, Verbal (Name & ) - Structural Data Admitted From: Home Planned Operative Procedure/s: JENNIFER Verified Documents: Surgical Consent, History and Physical - NPO Status Verified Time NPO: 00:00 - Chart Verification Results Verified: CBC, BMP - Additional verifications Patient : No Anesthesia Reactions: No Hx Blood Transfusions: No Blood Transfusion Reaction: No Cephalosporin Allergy: No Previous Colonoscopy: No - Cardiovascular Assessment Pulse Strength: Strong Pulse Rhythm: Irregular Peripheral Edema: No - Airway Assessment C-Spine Mobility Assessed: Yes TMJ Mobility Assessed: Yes Dentition: Edentulous - Neurological Assessment Level of Consciousness: Awake, Alert, Appropriate Hx Seizures: No Numbness or tingling in extremities: No - Anesthesia Plan Anesthesia Risk discussed: Yes Anesthesia Plan: Verified ASA Class: III Anesthesia Type: MAC [facility] Anesthesia HX I have reviewed the patient's past medical history: Yes Medical History: Reports:: Asthma, Atrial Fibrillation, Chronic Obstructive Pulmonary Disease (COPD), Coronary Artery Disease, Hyperlipidemia, Hypertension , Transient Ischemic Attacks (TIA), Valvular Heart Disease Denies:: Cancer, Diabetes Mellitus Type 1, Diabetes Mellitus Type 2, MRSA, Seizures Other Surgeries: Yes: Other (cardiac stent placement 03/10/17) Amputation: No Fractures: No *Family Hx:: Heart Attack, Coronary Artery Disease, Diabetes, Hypertension
--- NOTE | 2017-03-31 10:55 | PC.NURSE ---
post procedure call made, pt states she is at the doctor's office at this time for her f/u appt and is doing ok, denies any questions/concerns
== END 2017-03-24 15:30 ==
PROVIDERS: Family Provider Family Medicine; PCP Family Medicine; Visit Provider Internal Medicine Cardiovascular Disease
DX: I35.0 Nonrheumatic aortic (valve) stenosis (principal); I10 Essential (primary) hypertension; Z72.0 Tobacco use; J44.9 Chronic obstructive pulmonary disease, unspecified; I25.10 Atherosclerotic heart disease of native coronary artery without angina pectoris
CPT/HCPCS: 93312

== ENCOUNTER 2017-04-05 14:31 | Observation (INO) | payer MEDICARE, SELFPAY ==
[2017-04-05 14:32] VITALS: BP 132/51; PULSE 70; RESP 20; O2SAT 98
[2017-04-05 14:40] VITALS: BP 113/56; PULSE 69; RESP 20; TEMP 36.9; O2SAT 100; BMI 28.5
--- NOTE | 2017-04-05 14:56 | CT_ITS ---
CT head/brain wo con HISTORY: Headache, dizziness, contusion, bruising around right eye for head ITS.REASON: FELL LAST NIGHT AT 2100 , HIT HEAD ORDERING PHYSICIAN: Narciso Burton MD PATIENT AGE: 66 years COMPARISON: 03/08/2017 TECHNIQUE: Axial images obtained without contrast. Brain and bone windows reviewed. FINDINGS: No midline shift, mass effect, intracranial hemorrhage, hydrocephalus, or extra-axial fluid collection is evident. There is mild generalized atrophy with microangiopathic gliotic change The calvarium has an unremarkable appearance. No mastoid effusion. No sinus air-fluid levels.. IMPRESSION: No acute intracranial findings.
[2017-04-05 15:48] LABS: Basophils # 0.1 K/mm3 (0-0.2); Basophils % 0.6 % (0.1-2.0); Eosinophils # 0.1 K/mm3 (0.0-0.4); Eosinophils % 0.8 % (0.1-12.0); Hematocrit 29.9 % (37.0-47.0); Hemoglobin 9.7 g/dL (12.2-16.2); Lymphocytes % 23.1 K/mm3 (10-50); Mean Corpuscular HGB Conc 32.3 g/dL (31.8-35.4); Mean Corpuscular Hemoglobin 30.1 pg (27.0-31.2); Mean Corpuscular Volume 93.3 fl (81-99); Monocytes # 0.5 K/mm3 (0.1-1.0); Neutrophils # 5.9 K/mm3 (1.8-7.8); Neutrophils % 69.4 % (37.0-80.0); Platelet Count 305 K/mm3 (142-424); Red Blood Count 3.21 M/mm3 (4.20-5.40); Red Cell Distribution Width 14.2 % (11.5-17.5); White Blood Count 8.4 K/mm3 (4.8-10.8)
[2017-04-05 15:54] LABS: INR 1.51 (0.9-1.1); Prothrombin Time 16.4 seconds (9.4-11.8)
--- NOTE | 2017-04-05 16:00 | HMH.EDFALL ---
ED Disposition Clinical Impression: Upper GI bleed, CAD (coronary artery disease), Coagulopathy Disposition: Still a Patient Condition on Discharge: Fair Additional Instructions: I had extensive discussion with Mrs. Scanlon and her . She was made aware that she has a new stent that requires anticoagulation in the meanwhile she is having an upper GI bleed the point that she became symptomatic and fell. She was agreeable that I contacted Dr. Yeager for admission, surgery and cardiology consultation. Referrals: Guero Michel [Primary Care Provider] - Michael Yeager MD [Staff Physician] - - Critical Care Critical Care Time: No Attestation: On 04/05/17, the high probability of a clinically significant, sudden or life threatening deterioration of the following system(s) required my full and direct attention, intervention and personal management. The time I documented below is in addition to time spent performing reported procedures but includes the following listed in this critical care notation. Medical Decision Making - Medical Records Medical records reviewed: Yes: I reviewed the patient's medical records. Vital Signs: 04/05/17 14:32 04/05/17 14:40 Temperature 98.4 F Temperature Source Oral Pulse Rate [Right Radial] 70 69 Respiratory Rate 20 20 Blood Pressure [Right Arm] 132/51 113/56 Blood Pressure Mean [Right Arm] 78 75 Blood Pressure Source [Right Arm] Automatic Cuff Automatic Cuff Blood Pressure Position [Right Arm] Sitting Sitting 02 Sat by Pulse Oximetry 98 100 Oxygen Delivery Method Room Air Room Air - Lab Data Lab Results 04/05/17 15:30: WBC 8.4, RBC 3.21 L, Hgb 9.7 L, Hct 29.9 L, MCV 93.3, MCH 30.1, MCHC 32.3, RDW 14.2, Plt Count 305, MPV 9.0, Neut % (Auto) 69.4, Lymph % (Auto) 23.1, [place] % (Auto) 6.0, Eos % (Auto) 0.8, Baso % (Auto) 0.6, Neut # (Auto) 5.9, Lymph # (Auto) 2.0, [place] # (Auto) 0.5, Eos # (Auto) 0.1, Baso # (Auto) 0.1 04/05/17 15:30: PT 16.4 H, INR 1.51 H 04/05/17 15:30: Sodium 137, Potassium 2.4 L*, Chloride 94 L, Carbon Dioxide 40 H, Anion Gap 5.4, BUN 20 H, Creatinine 1.59 H, Estimated Creat Clear 36, Estimated GFR 32 L, Est GFR ( Amer) 39 L, Glucose 96, Calcium 8.9, Total Bilirubin 0.5, AST 20, ALT 17, Alkaline Phosphatase 86, Total Creatine Kinase 72, CK-MB (CK-2) < 0.5, CK-MB (CK-2) Rel Index 0.7, Troponin I < 0.02, Total Protein 6.8, Albumin 3.3 L, Globulin 3.5 H, Albumin/Globulin Ratio 0.9 L 04/05/17 16:10: Stool Occult Blood Positive A Result diagrams: 04/05/17 15:30 04/05/17 15:30 - CT Data ED CT Reviewed: Yes: I have viewed the radiologist's interpretation - ECG Data Tracing #1 Normal sinus rhythm 66/min baseline artifact no acute findings. ECG initial impression date: 04/05/17 - Jeffrey Inquiry Pt receiving controlled substance: No Jeffrey was queried for this patient: No Medical Decision Making Narrative: The patient did have black stool. The patient had a negative PET scan for intracerebral bleeding. MPRESSION: No acute intracranial findings.. I discussed the patient orthostatics hemoglobin and melanotic stool with Dr. Yeager. Addition to her low potassium of 2.4. Agreed to admit the patient for repeated H&H and consultations. Fall HPI - General Chief Complaint: Fall Stated Complaint: A/O 04/04/17 FELL HIT HEAD Mode of Arrival: Wheelchair Limitations: Physical Limitations Description of Symptoms (Recalled from ER Triage Doc. by RN): Fell forward last night at 2100 while walking,hit head, has laceration over eyebrow. Home health nurse came today, stated patient had low BP and needed to go to the ER. Legs buckling when patient stands. - History of Present Illness HPI Narrative: 66 years old white female with coronary artery disease status post stenting she is on is Xalerto. She is maintained on blood pressure medications to keep her on the hypotensive side . she was walking across the floor at her house whe
--- NOTE | 2017-04-05 16:03 | ED_ITS ---
ED Disposition Clinical Impression: Upper GI bleed, CAD (coronary artery disease), Coagulopathy Disposition: Still a Patient Condition on Discharge: Fair Additional Instructions: I had extensive discussion with Mrs. Scanlon and her . She was made aware that she has a new stent that requires anticoagulation in the meanwhile she is having an upper GI bleed the point that she became symptomatic and fell. She was agreeable that I contacted Dr. Yeager for admission, surgery and cardiology consultation. Referrals: Guero Michel [Primary Care Provider] - Michael Yeager MD [Staff Physician] - - Critical Care Critical Care Time: No Attestation: On 04/05/17, the high probability of a clinically significant, sudden or life threatening deterioration of the following system(s) required my full and direct attention, intervention and personal management. The time I documented below is in addition to time spent performing reported procedures but includes the following listed in this critical care notation. Medical Decision Making - Medical Records Medical records reviewed: Yes: I reviewed the patient's medical records. Vital Signs: 04/05/17 14:32 04/05/17 14:40 Temperature 98.4 F Temperature Source Oral Pulse Rate [Right Radial] 70 69 Respiratory Rate 20 20 Blood Pressure [Right Arm] 132/51 113/56 Blood Pressure Mean [Right Arm] 78 75 Blood Pressure Source [Right Arm] Automatic Cuff Automatic Cuff Blood Pressure Position [Right Arm] Sitting Sitting 02 Sat by Pulse Oximetry 98 100 Oxygen Delivery Method Room Air Room Air - Lab Data Lab Results 04/05/17 15:30: WBC 8.4, RBC 3.21 L, Hgb 9.7 L, Hct 29.9 L, MCV 93.3, MCH 30.1, MCHC 32.3, RDW 14.2, Plt Count 305, MPV 9.0, Neut % (Auto) 69.4, Lymph % (Auto) 23.1, [place] % (Auto) 6.0, Eos % (Auto) 0.8, Baso % (Auto) 0.6, Neut # (Auto) 5.9 , Lymph # (Auto) 2.0, [place] # (Auto) 0.5, Eos # (Auto) 0.1, Baso # (Auto) 0.1 04/05/17 15:30: PT 16.4 H, INR 1.51 H 04/05/17 15:30: Sodium 137, Potassium 2.4 L*, Chloride 94 L, Carbon Dioxide 40 H , Anion Gap 5.4, BUN 20 H, Creatinine 1.59 H, Estimated Creat Clear 36, Estimated GFR 32 L, Est GFR ( Amer) 39 L, Glucose 96, Calcium 8.9, Total Bilirubin 0.5, AST 20, ALT 17, Alkaline Phosphatase 86, Total Creatine Kinase 72 , CK-MB (CK-2) < 0.5, CK-MB (CK-2) Rel Index 0.7, Troponin I < 0.02, Total Protein 6.8, Albumin 3.3 L, Globulin 3.5 H, Albumin/Globulin Ratio 0.9 L 04/05/17 16:10: Stool Occult Blood Positive A Result diagrams: 04/05/17 15:30 04/05/17 15:30 - CT Data ED CT Reviewed: Yes: I have viewed the radiologist's interpretation - ECG Data Tracing #1 Normal sinus rhythm 66/min baseline artifact no acute findings. ECG initial impression date: 04/05/17 - Jeffrey Inquiry Pt receiving controlled substance: No Jeffrey was queried for this patient: No Medical Decision Making Narrative: The patient did have black stool. The patient had a negative PET scan for intracerebral bleeding. MPRESSION: No acute intracranial findings.. I discussed the patient orthostatics hemoglobin and melanotic stool with Dr. Yeager. Addition to her low potassium of 2.4. Agreed to admit the patient for repeated H&H and consultations. Fall HPI - General Chief Complaint: Fall Stated Complaint: A/O 04/04/17 FELL HIT HEAD Mode of Arrival: Wheelchair Limitations: Physical Limitations Description of Symptoms (Recalled fr
[2017-04-05 16:17] LABS: Alanine Aminotransferase 17 U/L (12-78); Albumin Level 3.3 gm/dL (3.4-5.0); Albumin/Globulin Ratio 0.9 (1.1-1.8); Alkaline Phosphatase 86 U/L (46-116); Anion Gap 5.4 mEq/L (5-15); Aspartate Amino Transferase 20 U/L (15-37); Bilirubin,Total 0.5 mg/dL (0.2-1.0); Blood Urea Nitrogen 20 mg/dL (7-18); Calcium 8.9 mg/dL (8.5-10.1); Chloride 94 mmol/L (98-107); Creatine Kinase 72 U/L (26-192); Creatinine Clearance Estimated 36 mL/min (0-300); Creatinine,Serum 1.59 mg/dL (0.55-1.02); Estimated Glomerular Filt Rate 32 ml/min (>60); GFR (African American) 39 ML/MIN (>60); Globulin 3.5 gm/dl (1.3-3.2); Glucose 96 mg/dL (74-106); Sodium 137 mmol/L (136-145); Total Protein,Serum 6.8 gm/dL (6.4-8.2); Troponin I < 0.02 ng/ml (0.00-0.06)
--- NOTE | 2017-04-05 16:22 | PC.NURSE ---
Orthostatic vital signs taken, results are the following: SUPINE: Blood Pressure 119/56, HR 68, Oxygen Saturation 100%. SITTING: Blood Pressure 112/59, HR 70, Oxygen Saturation 98%. STANDING: Blood Pressure 94/54, HR 78, Oxygen Saturation 98%.
[2017-04-05 16:29] LABS: Carbon Dioxide 40 mmol/L (21.0-32.0); Potassium 2.4 mmoL/L (3.5-5.1)
[2017-04-05 16:48] LABS: CKMB Relative Index 0.7 U/L (0-4.0); Creatine Kinase MB < 0.5 mg/ml (0.0-3.6)
[2017-04-05 17:22] LABS: Occult Blood,Stool Positive (Negative)
--- NOTE | 2017-04-05 17:50 | PC.NURSE ---
PT IS BEING ADMITTED TO [facility] FOR HIMSELF OBSERVATION FOR UPPER GI BLEED ROOM ASSIGNMENT #[id number] REGISTRATION HAS BEEN MADE AWARE OF PT'S ADMISSION INFORMATION
--- NOTE | 2017-04-05 18:34 | PC.NURSE ---
Report given to June on 2nd floor.
[2017-04-05 19:04] VITALS: BP 120/77; PULSE 80; RESP 22; TEMP 36.7; O2SAT 99
[2017-04-05 19:51] VITALS: BP 137/66; PULSE 67; RESP 20; TEMP 36.8; O2SAT 95; BMI 28.3
[2017-04-05 20:00] VITALS: BP 134/52; PULSE 68; RESP 20; TEMP 36.2; O2SAT 98
--- NOTE | 2017-04-05 20:35 | PC.NURSE ---
pt used bathroom before we could get a hat on toilet, hat in place now
[2017-04-05 21:53] LABS: Hemoglobin 8.4 g/dL (12.2-16.2)
[2017-04-06] VITALS (25 sets, daily range): BP systolic 99–150; BP diastolic 39–73; PULSE 63–77; RESP 16–18; TEMP 36.4–37; O2SAT 90–98; BMI 28.5
[2017-04-06 03:02] LABS: Hematocrit 24.3 % (37.0-47.0)
[2017-04-06 03:14] LABS: Hemoglobin 8.2 g/dL (12.2-16.2)
--- NOTE | 2017-04-06 03:56 | PC.NURSE ---
laying in bed resting. has slept well most of shift. Had an mi one month ago requiring stents to be placed. Pt was put on anticoagulant therapy. Pt has a active gi bleed. Ambulated to restroom at home and fell. A skin tear to right elbow and laceration to right eye. also bruising to right eye. Dressing has been changed 2 x this shift. due to wallowed out of dressing. Still small amount of bleeding noted. lungs have wheezing throughout. Resp are even and nonlabored. iv is patent. will continue to monitor. bed locked in low position, side rales up x 2. pt verbalized would use call light before getting up.
[2017-04-06 06:59] LABS: Basophils % 0.5 % (0.1-2.0); Eosinophils # 0.1 K/mm3 (0.0-0.4); Eosinophils % 2.2 % (0.1-12.0); Hematocrit 24.9 % (37.0-47.0); Hemoglobin 8.2 g/dL (12.2-16.2); Lymphocytes # 2.3 K/mm3 (0.7-4.5); Mean Corpuscular HGB Conc 32.9 g/dL (31.8-35.4); Mean Corpuscular Hemoglobin 30.9 pg (27.0-31.2); Mean Corpuscular Volume 94.1 fl (81-99); Mean Platelet Volume 8.9 fl (7.4-10.4); Monocytes # 0.4 K/mm3 (0.1-1.0); Monocytes % 6.8 % (1.7-9.3); Neutrophils # 3.1 K/mm3 (1.8-7.8); Neutrophils % 51.5 % (37.0-80.0); Platelet Count 234 K/mm3 (142-424); Red Blood Count 2.65 M/mm3 (4.20-5.40)
[2017-04-06 07:09] LABS: Anion Gap 6.2 mEq/L (5-15); Blood Urea Nitrogen 19 mg/dL (7-18); Chloride 98 mmol/L (98-107); Creatinine Clearance Estimated 46 mL/min (0-300); Creatinine,Serum 1.24 mg/dL (0.55-1.02); Estimated Glomerular Filt Rate 43 ml/min (>60); GFR (African American) 52 ML/MIN (>60); Glucose 82 mg/dL (74-106); Potassium 3.2 mmoL/L (3.5-5.1); Sodium 141 mmol/L (136-145)
--- NOTE | 2017-04-06 07:12 | HMH.PHAVTE ---
[facility] Pharmacy VTE Monitoring - Patient Demographics Admission date: 04/05/17 Report Date: 04/06/17 Time: 07:13 Allergies/Adverse Reactions: Patient Allergies No Known Allergies Allergy (Verified 04/05/17 14:51) Height: 1.52 m Weight: 65.828 kg Patient Problems: Current Active Problems (Last Reviewed 03/22/17 @ 01:38 by Sonia Read RN) Upper GI bleed (Acute) Coagulopathy (Acute) CAD (coronary artery disease) (Chronic) - VTE Risk Labs: VTE Related Lab Results Hgb 8.2 g/dL (12.2-16.2) L 04/06/17 06:31 Hct 24.9 % (37.0-47.0) L 04/06/17 06:31 Plt Count 234 K/mm3 (142-424) 04/06/17 06:31 PT 16.4 seconds (9.4-11.8) H 04/05/17 15:30 INR 1.51 (0.9-1.1) H 04/05/17 15:30 BUN 20 mg/dL (7-18) H 04/05/17 15:30 Creatinine 1.59 mg/dL (0.55-1.02) H 04/05/17 15:30 Estimated Creat Clear 36 mL/min (0-300) 04/05/17 15:30 VTE Score: 3 VTE Risk Level: Low Risk - Prophylaxis VTE Prophylaxis Ordered?: Yes Types of VTE Prophylaxis: TEDS Knee High Location of Applied Device: Bilateral Lower Extremeties - VTE Diagnosis Confirmed Treatment or plan recommended: Continue Current Treatment
[2017-04-06 07:16] LABS: Carbon Dioxide 40 mmol/L (21.0-32.0)
--- NOTE | 2017-04-06 08:13 | HMH.HP ---
*Admission Date: 04/05/17 <Ni Rivas 04/06/17 08:20> *Chief complaint: fall <Ni Rivas 04/06/17 08:20> *History of present illness: 66 years old white female with coronary artery disease status post stenting;she is on is Xalerto. She is maintained on blood pressure medications to keep her on the hypotensive side; she was walking across the floor at her house when she felt her knees giving away; she fell and hit her head on the floor. She denies loss of consciousness she denies having neck pain nausea vomiting since yesterday. Contacted the receptionist office Dr. Pretty who advised her to come and have a head scan. She has no specific complaint of pain. No numbness or tingling involving upper or lower extremities. No nausea or vomiting. She has no coffee-ground emesis hematemesis or melanotic stool. Has no dysuria or hematuria. No bleeding per orifices. <Ni Rivas 04/06/17 08:20> [facility] History Medical History: Reports:: Anxiety, Asthma, Atherosclerotic Heart Disease, Atrial Fibrillation, Chronic Obstructive Pulmonary Disease (COPD), Coronary Artery Disease, Cerebrovascular Accident, Gastrointestinal Bleed, Hyperlipidemia, Hypertension, Lung Disease, Transient Ischemic Attacks (TIA), Valvular Heart Disease Denies:: Cancer, Diabetes Mellitus Type 1, Diabetes Mellitus Type 2, MRSA <Ni Rivas 04/06/17 08:51> Other Medical History: Reports: Anemia <Ni Rivas 04/06/17 08:51> Other Surgeries: Yes: Coronary Stent, Other (JENNIFER) <Ni Rivas 04/06/17 08:20> Amputation: No <Ni Rivas 04/06/17 08:20> Fractures: No <Ni Rivas 04/06/17 08:20> - *Social History Educational Level: Completed Grade School <Ni Rivas 04/06/17 08:20> Smoking Status: Current some day smoker <RivasNi 04/06/17 08:20> Tobacco Type: cigarettes <Rivas,Ni 04/06/17 08:20> # Packs/Day (cigarettes): 2 <EvelynNi 04/06/17 08:51> Alcohol Intake: never <Ni Rivas 04/06/17 08:20> Alcohol Intake Frequency:: other <Ni Rivas 04/06/17 08:20> Substance Use Type: denies use <Ni Rivas 04/06/17 08:20> Occupational Status: previously employed, retired <Ni Rivas 04/06/17 08:20> Housing: house <Ni Rivas 04/06/17 08:20> Household Members: significant other <Ni Rivas 04/06/17 08:20> - Psychiatric History Expresses thoughts of harming self/others: None <Ni Rivas 04/06/17 08:20> Suicide Plan Description: No Plan <Ni Rivas 04/06/17 08:20> Pschychiatric History:: Reports:: Anxiety <Ni Rivas 04/06/17 08:20> *Family Hx:: Heart Attack, Coronary Artery Disease, Diabetes, Hypertension <Ni Riavs 04/06/17 08:20> Review of Systems - Constitutional Denies fever(s), Denies headache(s) <Ni Rivas 04/06/17 08:51> - Eyes Reports loss of vision (left eye) <Ni Rivas 04/06/17 08:51> - ENT Reports dizziness, Denies sore throat <Ni Rivas 04/06/17 08:51> - *Cardiovascular Denies chest pain, Denies shortness of breath, Denies irregular heart rhythm <Ni Rivas 04/06/17 08:51> - *Respiratory Reports cough, Denies shortness of breath <Ni Rivas 04/06/17 08:51> - *Gastrointestinal Denies abdominal pain, Denies change in bowel habits, Denies change in stools, Denies coffee ground vomit, Denies constipation, Denies heartburn, Denies incontinent of stools, Denies heartburn, Denies vomiting blood, Denies bright, red blood in stools, Denies loose stools, Denies black, tarry stools, Denies nausea, Denies vomiting <Ni Rivsa 04/06/17 08:51> - *Musculoskeletal Denies abnormal walking, Denies muscle weakness, Denies body aches <Ni Rivas - 04/06/17 08:51> - *Neurologic Reports dizziness, Reports localized weakness, Reports fainting, Denies seizure-like activity, Denies headache(s) <Ni Rivas 04/06/17 08:51> Meds Home Medications Medication Instructions Recorded Confirmed Type A
--- NOTE | 2017-04-06 08:17 | P.HP_ITS ---
*Admission Date: 04/05/17 <Ni Rivas 04/06/17 08:20> *Chief complaint: fall <Ni Rivas 04/06/17 08:20> *History of present illness: 66 years old white female with coronary artery disease status post stenting;she is on is Xalerto. She is maintained on blood pressure medications to keep her on the hypotensive side; she was walking across the floor at her house when she felt her knees giving away; she fell and hit her head on the floor. She denies loss of consciousness she denies having neck pain nausea vomiting since yesterday. Contacted the funeral home makeup artist office Dr. Pretty who advised her to come and have a head scan. She has no specific complaint of pain. No numbness or tingling involving upper or lower extremities. No nausea or vomiting. She has no coffee-ground emesis hematemesis or melanotic stool. Has no dysuria or hematuria. No bleeding per orifices. <Ni Rivas 04/06/17 08:20> [facility] History Medical History: Reports:: Anxiety, Asthma, Atherosclerotic Heart Disease, Atrial Fibrillation, Chronic Obstructive Pulmonary Disease (COPD), Coronary Artery Disease, Cerebrovascular Accident, Gastrointestinal Bleed, Hyperlipidemia , Hypertension, Lung Disease, Transient Ischemic Attacks (TIA), Valvular Heart Disease Denies:: Cancer, Diabetes Mellitus Type 1, Diabetes Mellitus Type 2, MRSA < Ni Rivas 04/06/17 08:51> Other Medical History: Reports: Anemia <Ni Rivas 04/06/17 08:51> Other Surgeries: Yes: Coronary Stent, Other (JENNIFER) <Ni Rivas 04/06/17 08 :20> Amputation: No <Ni Rivas 04/06/17 08:20> Fractures: No <Ni Rivas 04/06/17 08:20> - *Social History Educational Level: Completed Grade School <Ni Rivas 04/06/17 08:20> Smoking Status: Current some day smoker <RivasNi 04/06/17 08:20> Tobacco Type: cigarettes <Rivas,Ni 04/06/17 08:20> # Packs/Day (cigarettes): 2 <EvelynNi 04/06/17 08:51> Alcohol Intake: never <Ni Rivas 04/06/17 08:20> Alcohol Intake Frequency:: other <Ni Rivas 04/06/17 08:20> Substance Use Type: denies use <Ni Rivas 04/06/17 08:20> Occupational Status: previously employed, retired <Ni Rivas 04/06/17 08 :20> Housing: house <Ni Rivas 04/06/17 08:20> Household Members: significant other <Ni Rivas 04/06/17 08:20> - Psychiatric History Expresses thoughts of harming self/others: None <Ni Rivas 04/06/17 08: 20> Suicide Plan Description: No Plan <Ni Rivas 04/06/17 08:20> Pschychiatric History:: Reports:: Anxiety <Ni Rivas 04/06/17 08:20> *Family Hx:: Heart Attack, Coronary Artery Disease, Diabetes, Hypertension < Ni Rivas 04/06/17 08:20> Review of Systems - Constitutional Denies fever(s), Denies headache(s) <Ni Rivas 04/06/17 08:51> - Eyes Reports loss of vision (left eye) <Ni Rivas 04/06/17 08:51> - ENT Reports dizziness, Denies sore throat <Ni Rivas 04/06/17 08:51> - *Cardiovascular Denies chest pain, Denies shortness of breath, Denies irregular heart rhythm < Ni Rivas 04/06/17 08:51> - *Respiratory Reports cough, Denies shortness of breath <Ni Rivas 04/06/17 08:51> - *Gastrointestinal Denies abdominal pain, Denies change in bowel habits, Denies change in stools, Denies coffee ground vomit, Denies constipation, Denies heartburn, Denies incontinent of stools, Denies heartburn, Denies vomiting blood, Denies bright, red blood in stools, Denies loose stools, Denies black, tarry stools, Denies nausea, Denies vomiting <Ni Rivas 04/06/17 08:51> - *Musculoskeletal Denies abnormal walking, Denies muscle weakness, Den
[2017-04-06 11:38] LABS: Ferritin 72 ng/mL (8-388)
--- NOTE | 2017-04-06 16:18 | PC.NURSE ---
!st unit transfused w/no s/s of a reaction. Pt tolerated well. 287 ml total infused.
--- NOTE | 2017-04-06 16:22 | PC.NURSE ---
Faint wheezes noted t/o lung chavez. Pt on 2l nc w/O2 sats remaining in the 90's. Pt has skin tears to right forearm. 4x4's in place and wrapped in coban. Dressing is cdi. She has ambulated to the bathroom using a walker and standby assist. Gait is steady and pt tolerates w/no distress. Scattered bruising is noted which pt states is from a fall at home. Teds are on ble, iv is patent and infusing prbc's at this time. This is the pt's 2nd unit. There have been no s/s of a reaction. vs stable. Will continue to monitor.
--- NOTE | 2017-04-06 17:57 | PC.NURSE ---
Lab notified of 1hr post HH due at 1900. They verbalized understanding.
--- NOTE | 2017-04-06 18:54 | PC.NURSE ---
Report to be given to Janeth Restrepo RN
[2017-04-06 19:20] LABS: Hematocrit 30.2 % (37.0-47.0)
[2017-04-06 19:35] LABS: Hemoglobin 10.2 g/dL (12.2-16.2)
[2017-04-07 04:05] VITALS: BP 147/60; PULSE 61; RESP 18; TEMP 36.5; O2SAT 96
--- NOTE | 2017-04-07 06:15 | PC.NURSE ---
PT HAS RESTED WELL THIS SHIFT, DENIES PAIN OR DISCOMFORT. ALERT TO PERSON AND PLACE BUT NOT TIME. SKIN TEAR NOTED TO RT ARM, DSG CDI. WHEEZES NOTED DURING LUNG AUSCULTATION. TOLERATING 2L NC WELL. BS ACTIVE IN ALL 4 QAUDS. VSS. NO ACUTE DISTRESS NOTED. WILL CONTINUE TO MONITOR.
--- NOTE | 2017-04-07 06:17 | PC.NURSE ---
CURTIS MEJIA PRESENT TO BLE
[2017-04-07 06:24] VITALS: PULSE 64; O2SAT 94
--- NOTE | 2017-04-07 07:27 | PC.NURSE ---
REPORT GIVEN TO Leora RODRÍGUEZ RN
--- NOTE | 2017-04-07 07:39 | PC.NURSE ---
REPORT GIVEN TO Leora MYERS W/C
[2017-04-07 08:00] VITALS: BP 157/46; PULSE 69; RESP 20; TEMP 36.8; O2SAT 90
--- NOTE | 2017-04-07 08:05 | HMH.ACPN2 ---
<Cecilia Muse - Last Filed: 04/07/17 08:05> Internal Medicine - PN: Subj *Date: 04/07/17 *Time: 08:05 Interval history: Patient is feeling better today. Her H&H is improved. She denies any pain. She slept well and ate most of her breakfast this morning. Exam Vital signs and Labs for Last 24 Hours: Temp Pulse Resp BP Pulse Ox 97.7 F 64 18 147/60 94 L 04/07/17 04:05 04/07/17 06:24 04/07/17 04:05 04/07/17 04:05 04/07/17 06:24 Laboratory Results - last 24 hr 04/06/17 06:31: Ferritin 72 04/06/17 10:40: Blood Type A Positive, Antibody Screen Negative, Crossmatch (AHG) See Detail 04/06/17 10:45: Blood Type Confirm A Positive 04/06/17 19:00: Hgb 10.2 L D, Hct 30.2 L I & O for Last 24 hours: Intake & Output 04/04/17 04/05/17 04/06/17 04/07/17 11:59 11:59 11:59 11:59 Intake Total 360 / 360 2971 / 2971 Output Total 400 / 400 1450 / 1450 Balance -40 / -40 1521 / 1521 Weight 145 lb 2 oz 145 lb 2.014 oz - Constitutional no acute distress - *Routine Respiratory Exam Present: wheezes. Absent: crackles - *Routine Cardiovascular Exam Present: RRR - *Routine Abdominal Exam Present: soft, normoactive bowel sounds. Absent: tenderness - *Routine Extremities Exam Absent: edema Assessment and Plan (1) Anemia Status: Acute Category: Medical Code(s): D64.9 - Anemia, unspecified (2) Upper GI bleed Status: Acute Category: Medical Code(s): K92.2 - Gastrointestinal hemorrhage, unspecified (3) CAD (coronary artery disease) Status: Chronic Category: Medical Code(s): I25.10 - Atherosclerotic heart disease of [place] coronary artery without angina pectoris (4) Aortic valve stenosis with insufficiency Status: Chronic Category: Medical Code(s): I35.2 - Nonrheumatic aortic (valve) stenosis with insufficiency (5) COPD (chronic obstructive pulmonary disease) Status: Chronic Qualifiers: COPD type: unspecified COPD Qualified Code(s): J44.9 - Chronic obstructive pulmonary disease, unspecified Category: Medical Code(s): J44.9 - Chronic obstructive pulmonary disease, unspecified (6) Carotid artery stenosis Status: Chronic Qualifiers: Laterality: bilateral Qualified Code(s): I65.23 - Occlusion and stenosis of bilateral carotid arteries Category: Medical Code(s): I65.29 - Occlusion and stenosis of unspecified carotid artery (7) HLD (hyperlipidemia) Status: Chronic Qualifiers: Hyperlipidemia type: other hyperlipidemia Qualified Code(s): E78.4 - Other hyperlipidemia Category: Medical Code(s): E78.5 - Hyperlipidemia, unspecified (8) HTN (hypertension) Status: Chronic Qualifiers: Hypertension type: essential hypertension Qualified Code(s): I10 - Essential (primary) hypertension Category: Medical Code(s): I10 - Essential (primary) hypertension (9) Paroxysmal A-fib Status: Chronic Category: Medical Code(s): I48.0 - Paroxysmal atrial fibrillation - Assessment and plan all Dx Assessment and Plan for all problems:: Pt stable to be discharged home today. She will follow-up with her primary care physician on an outpatient basis to work up her GI bleed and will also follow-up with Dr. Pretty. Will stop her ASA and start iron. <Michael Yeager - Last Filed: 06/06/17 21:08> Internal Medicine - PN: Subj *Date: 06/06/17 *Time: 21:07 Exam Vital signs and Labs for Last 24 Hours: Temp Pulse Resp BP Pulse Ox 98.2 F 69 20 157/46 90 L 04/07/17 08:00 04/07/17 08:00 04/07/17 08:00 04/07/17 08:00 04/07/17 08:00 Assessment and Plan (1) Anemia Status: Chronic Category: Medical Code(s): D64.9 - Anemia, unspecified (2) Upper GI bleed Status: Resolved Category: Medical Code(s): K92.2 - Gastrointestinal hemorrhage, unspecified (3) CAD (coronary artery disease) Status: Chronic Qualifiers: Coronary Disease-Associated Artery/Lesion type: [place] artery
--- NOTE | 2017-04-07 08:08 | P.PN_ITS ---
<Cecilia Muse - Last Filed: 04/07/17 08:05> Internal Medicine - PN: Subj *Date: 04/07/17 *Time: 08:05 Interval history: Patient is feeling better today. Her H&H is improved. She denies any pain. She slept well and ate most of her breakfast this morning. Exam Vital signs and Labs for Last 24 Hours: Temp Pulse Resp BP Pulse Ox 97.7 F 64 18 147/60 94 L 04/07/17 04:05 04/07/17 06:24 04/07/17 04:05 04/07/17 04:05 04/07/17 06:24 Laboratory Results - last 24 hr 04/06/17 06:31: Ferritin 72 04/06/17 10:40: Blood Type A Positive, Antibody Screen Negative, Crossmatch (AHG ) See Detail 04/06/17 10:45: Blood Type Confirm A Positive 04/06/17 19:00: Hgb 10.2 L D, Hct 30.2 L I & O for Last 24 hours: Intake & Output 04/04/17 04/05/17 04/06/17 04/07/17 11:59 11:59 11:59 11:59 Intake Total 360 / 360 2971 / 2971 Output Total 400 / 400 1450 / 1450 Balance -40 / -40 1521 / 1521 Weight 145 lb 2 oz 145 lb 2.014 oz - Constitutional no acute distress - *Routine Respiratory Exam Present: wheezes. Absent: crackles - *Routine Cardiovascular Exam Present: RRR - *Routine Abdominal Exam Present: soft, normoactive bowel sounds. Absent: tenderness - *Routine Extremities Exam Absent: edema Assessment and Plan (1) Anemia Status: Acute Category: Medical Code(s): D64.9 - Anemia, unspecified (2) Upper GI bleed Status: Acute Category: Medical Code(s): K92.2 - Gastrointestinal hemorrhage , unspecified (3) CAD (coronary artery disease) Status: Chronic Category: Medical Code(s): I25.10 - Atherosclerotic heart disease of [place] coronary artery without angina pectoris (4) Aortic valve stenosis with insufficiency Status: Chronic Category: Medical Code(s): I35.2 - Nonrheumatic aortic ( valve) stenosis with insufficiency (5) COPD (chronic obstructive pulmonary disease) Status: Chronic Qualifiers: COPD type: unspecified COPD Qualified Code(s): J44.9 - Chronic obstructive pulmonary disease, unspecified Category: Medical Code(s): J44.9 - Chronic obstructive pulmonary disease, unspecified (6) Carotid artery stenosis Status: Chronic Qualifiers: Laterality: bilateral Qualified Code(s): I65.23 - Occlusion and stenosis of bilateral carotid arteries Category: Medical Code(s): I65.29 - Occlusion and stenosis of unspecified carotid artery (7) HLD (hyperlipidemia) Status: Chronic Qualifiers: Hyperlipidemia type: other hyperlipidemia Qualified Code(s): E78.4 - Other hyperlipidemia Category: Medical Code(s): E78.5 - Hyperlipidemia, unspecified (8) HTN (hypertension) Status: Chronic Qualifiers: Hypertension type: essential hypertension Qualified Code(s): I10 - Essential (primary) hypertension Category: Medical Code(s): I10 - Essential (primary) hypertension (9) Paroxysmal A-fib Status: Chronic Category: Medical Code(s): I48.0 - Paroxysmal atrial fibrillation - Assessment and plan all Dx Assessment and Plan for all problems:: Pt stable to be discharged home today. She will follow-up with her primary care physician on an outpatient basis to work up her GI bleed and will also follow-up with Dr. Pretty. Will stop her ASA and start iron. <Michael Yeager - Last Filed: 06/06/17 21:08> Internal Medicine - PN: Subj *Date: 06/06/17 *Time: 21:07 Exam
--- NOTE | 2017-04-07 08:14 | HMH.DCSUM ---
General - General Admission date: 04/05/17 <Michael Yeager - 04/07/17 08:19> Discharge date: 04/07/17 <Jacob Musea - 04/11/17 14:22> HPI HPI: 66 years old white female with coronary artery disease status post stenting;she is on is Xalerto. She is maintained on blood pressure medications to keep her on the hypotensive side; she was walking across the floor at her house when she felt her knees giving away; she fell and hit her head on the floor. She denies loss of consciousness she denies having neck pain nausea vomiting since yesterday. Contacted the moisture machine tender office Dr. Pretty who advised her to come and have a head scan. She has no specific complaint of pain. No numbness or tingling involving upper or lower extremities. No nausea or vomiting. She has no coffee-ground emesis hematemesis or melanotic stool. Has no dysuria or hematuria. No bleeding per orifices. <Michael Yeager Derrick - 04/07/17 08:19> Objective Vital signs: Temp Pulse Resp BP Pulse Ox 98.2 F 69 20 157/46 90 L 04/07/17 08:00 04/07/17 08:00 04/07/17 08:00 04/07/17 08:00 04/07/17 08:00 <MichaCeciila - 04/11/17 14:22> Temp Pulse Resp BP Pulse Ox 97.7 F 64 18 147/60 94 L 04/07/17 04:05 04/07/17 06:24 04/07/17 04:05 04/07/17 04:05 04/07/17 06:24 <Michael Yeager - 04/07/17 08:19> Narrative: - Constitutional no acute distress Comments: NAD; lying in bed and appears comfortable - *Routine HEENT Exam Head: Present: abrasion (right forehead) Eye: Present: PERRL. Absent: conjunctival icterus ENT: Present: mucous membranes moist, oropharynx clear - *Routine Neck Exam Present: supple. Absent: carotid bruit, lymphadenopathy, thyromegaly - *Routine Respiratory Exam Present: diminished air movement. Absent: accessory muscle use Comments: bilateral wheezing - *Routine Abdominal Exam Present: soft, normoactive bowel sounds. Absent: tenderness, distended - *Routine Extremities Exam Absent: edema, calf tenderness Comments: CURTIS jessica on - *Routine Skin Exam Comments: dressing on right forearm C/D - *Routine Neurological Exam Present: alert, oriented X3 <MichaCecilia - 04/11/17 14:22> Hospital Course Hospital Course: A CT of her head showed nothing acute but she was found to be anemic. She was transfused with 2 units of PRBC's. She felt much better and her H&H improved. She denied any pain. She was able to sleep and eat most of her breakfast. She was stable to be discharged home and will follow-up with her primary care physician on an outpatient basis to work up her GI bleed. She will also follow-up with Dr. Pretty. Will stop her ASA and start on iron. <Cecilia Muse - 04/11/17 14:22> Results Labs on day of discharge: Labs from last 24 hours 04/06/17 04/06/17 04/06/17 19:00 10:45 10:40 Hgb 10.2 L D Hct 30.2 L Ferritin Blood Type A Positive Blood Type Confirm A Positive Antibody Screen Negative Crossmatch (AHG) See Detail 04/06/17 06:31 Hgb Hct Ferritin 72 Blood Type Blood Type Confirm Antibody Screen Crossmatch (AHG) <ToyMichael Derrick - 04/07/17 08:19> DS: Diagnosis - Discharge Diagnosis (1) Anemia Status: Acute (2) Upper GI bleed Status: Acute (3) CAD (coronary artery disease) Status: Chronic (4) Aortic valve stenosis with insufficiency Status: Chronic (5) COPD (chronic obstructive pulmonary disease) Status: Chronic (6) Carotid artery stenosis Status: Chronic (7) HLD (hyperlipidemia) Status: Chronic (8) HTN (hypertension) Status: Chronic (9) Paroxysmal A-fib Status: Chronic <Cecilia Muse - 04/11/17 14:22> Meds Home Medications Medication Instructions Recorded Confirmed Type Albuterol Sulfate [Albuterol 2.5 mg IH QID 03/21/17 04/05/17 History 0.083% 2.5mg/3mL neb] Benazepril HCl 20 mg PO BID 0
--- NOTE | 2017-04-07 08:18 | P.DS_ITS ---
General - General Admission date: 04/05/17 <Michael Yeager - 04/07/17 08:19> Discharge date: 04/07/17 <Jacob Musea - 04/11/17 14:22> HPI HPI: 66 years old white female with coronary artery disease status post stenting;she is on is Xalerto. She is maintained on blood pressure medications to keep her on the hypotensive side; she was walking across the floor at her house when she felt her knees giving away; she fell and hit her head on the floor. She denies loss of consciousness she denies having neck pain nausea vomiting since yesterday. Contacted the certification and selection specialist office Dr. Pretty who advised her to come and have a head scan. She has no specific complaint of pain. No numbness or tingling involving upper or lower extremities. No nausea or vomiting. She has no coffee-ground emesis hematemesis or melanotic stool. Has no dysuria or hematuria. No bleeding per orifices. <Michael Yeager Derrick - 04/07/17 08:19> Objective Vital signs: Temp Pulse Resp BP Pulse Ox 98.2 F 69 20 157/46 90 L 04/07/17 08:00 04/07/17 08:00 04/07/17 08:00 04/07/17 08:00 04/07/17 08:00 <MichaCecilia - 04/11/17 14:22> Temp Pulse Resp BP Pulse Ox 97.7 F 64 18 147/60 94 L 04/07/17 04:05 04/07/17 06:24 04/07/17 04:05 04/07/17 04:05 04/07/17 06:24 <Michael Yeager - 04/07/17 08:19> Narrative: - Constitutional no acute distress Comments: NAD; lying in bed and appears comfortable - *Routine HEENT Exam Head: Present: abrasion (right forehead) Eye: Present: PERRL. Absent: conjunctival icterus ENT: Present: mucous membranes moist, oropharynx clear - *Routine Neck Exam Present: supple. Absent: carotid bruit, lymphadenopathy, thyromegaly - *Routine Respiratory Exam Present: diminished air movement. Absent: accessory muscle use Comments: bilateral wheezing - *Routine Abdominal Exam Present: soft, normoactive bowel sounds. Absent: tenderness, distended - *Routine Extremities Exam Absent: edema, calf tenderness Comments: CURTIS hose on - *Routine Skin Exam Comments: dressing on right forearm C/D - *Routine Neurological Exam Present: alert, oriented X3 <Cecilia Muse - 04/11/17 14:22> Hospital Course Hospital Course: A CT of her head showed nothing acute but she was found to be anemic. She was transfused with 2 units of PRBC's. She felt much better and her H&H improved. She denied any pain. She was able to sleep and eat most of her breakfast. She was stable to be discharged home and will follow-up with her primary care physician on an outpatient basis to work up her GI bleed. She will also follow- up with Dr. Pretty. Will stop her ASA and start on iron. <Cecilia Muse - 04/11/17 14:22> Results Labs on day of discharge: Labs from last 24 hours 04/06/17 04/06/17 04/06/17 19:00 10:45 10:40 Hgb 10.2 L D Hct 30.2 L Ferritin Blood Type A Positive Blood Type Confirm A Positive Antibody Screen Negative Crossmatch (AHG) See Detail 04/06/17 06:31 Hgb Hct Ferritin 72 Blood Type Blood Type Confirm Antibody Screen Crossmatch (AHG) <Michael Yeager - 04/07/17 08:19> DS: Diagnosis - Discharge Diagnosis (1) Anemi
[2017-04-07 08:28] LABS: Iron 70 ug/dL (27-139); UIBC 136 ug/dL (118-369)
[2017-04-07 08:52] LABS: Iron Saturation 34 % (15-55)
[2017-04-08 18:20] LABS: Folate 6.9 ng/mL (>3.0); Vitamin B12 196 pg/mL (232-1245)
== END 2017-04-07 10:00 | disposition home or self-care (01) ==
LOC: ER 17:40 → 2ND 18:01
PROVIDERS: Admitting Provider Family Medicine; Emergency Provider Emergency Medicine; Family Provider Family Medicine; PCP Family Medicine; Visit Provider Family Medicine
DX: D64.9 Anemia, unspecified (principal); S01.119A Laceration without foreign body of unspecified eyelid and periocular area, initial encounter; W18.30XA Fall on same level, unspecified, initial encounter; Y93.01 Activity, walking, marching and hiking; Y92.009 Unspecified place in unspecified non-institutional (private) residence as the place of occurrence of the external cause; F17.210 Nicotine dependence, cigarettes, uncomplicated; J44.9 Chronic obstructive pulmonary disease, unspecified; I25.10 Atherosclerotic heart disease of native coronary artery without angina pectoris; I10 Essential (primary) hypertension; E78.5 Hyperlipidemia, unspecified; F41.9 Anxiety disorder, unspecified; K92.2 Gastrointestinal hemorrhage, unspecified; I35.2 Nonrheumatic aortic (valve) stenosis with insufficiency; I65.23 Occlusion and stenosis of bilateral carotid arteries; I48.0 Paroxysmal atrial fibrillation; Z86.73 Personal history of transient ischemic attack (TIA), and cerebral infarction without residual deficits; Z79.02 Long term (current) use of antithrombotics/antiplatelets; Z79.82 Long term (current) use of aspirin; Z79.51 Long term (current) use of inhaled steroids; Z79.899 Other long term (current) drug therapy; Z79.01 Long term (current) use of anticoagulants; Z95.5 Presence of coronary angioplasty implant and graft
CPT/HCPCS: 36430; 70450; 80048; 80053; 82272; 82550; 82553; 82607; 82728; 82746; 83550; 84484; 85014; 85018; 85025; 85610; 86850; 93005; 93041; 94640; 94761; 99284; G0328; G0378; P9016

== ENCOUNTER 2017-04-16 13:35 | Inpatient (IN) | payer MEDICARE, SELFPAY ==
[2017-04-16] VITALS (23 sets, daily range): BP systolic 104–131; BP diastolic 37–74; PULSE 34–87; RESP 16–20; TEMP 36.5–37; O2SAT 18–100; BMI 27.1; BMI 27.5
--- NOTE | 2017-04-16 14:12 | HMH.EDGENADL ---
ED Disposition Clinical Impression: Acute GI bleeding, Blood loss anemia Disposition: Admitted As Inpatient Condition on Discharge: Fair Referrals: Guero Michel [Primary Care Provider] - Adam Newby MD [Staff Physician] - Time of Disposition: 17:52 - Critical Care Critical Care Time: No Attestation: On , the high probability of a clinically significant, sudden or life threatening deterioration of the following system(s) required my full and direct attention, intervention and personal management. The time I documented below is in addition to time spent performing reported procedures but includes the following listed in this critical care notation. Medical Decision Making - Medical Records Medical records reviewed: Yes: I reviewed the patient's medical records. Vital Signs: 04/16/17 13:36 Temperature 98.6 F Temperature Source Oral Pulse Rate [Right Brachial] 72 Respiratory Rate 20 Blood Pressure [Right Arm] 115/46 Blood Pressure Mean [Right Arm] 69 Blood Pressure Source [Right Arm] Automatic Cuff Blood Pressure Position [Right Arm] Sitting 02 Sat by Pulse Oximetry 100 Oxygen Delivery Method Nasal Cannula Oxygen Flow Rate (LPM) 2 - Lab Data Lab results reviewed: Yes: I reviewed the patient's lab results. Lab Results 04/16/17 04:48: Blood Type A Positive, Crossmatch (AHG) See Detail 04/16/17 14:10: Stool Occult Blood Positive A 04/16/17 15:22: WBC 7.1, RBC 2.55 L, Hgb 7.9 L*, Hct 24.4 L, MCV 95.6, MCH 30.8, MCHC 32.3, RDW 14.8, Plt Count 306, MPV 8.7, Neut % (Auto) 62.1, Lymph % (Auto) 29.7, Christian % (Auto) 5.9, Eos % (Auto) 1.5, Baso % (Auto) 0.7, Neut # (Auto) 4.4, Lymph # (Auto) 2.1, Christian # (Auto) 0.4, Eos # (Auto) 0.1, Baso # (Auto) 0.1 04/16/17 15:22: Sodium 139, Potassium 3.5, Chloride 99, Carbon Dioxide 33 H, Anion Gap 10.5, BUN 26 H, Creatinine 1.97 H, Estimated Creat Clear 29, Estimated GFR 25 L, Est GFR ( Amer) 31 L, Glucose 97, Calcium 8.7, Total Bilirubin 0.4, AST 19, ALT 19, Alkaline Phosphatase 72, Total Creatine Kinase 57, CK-MB (CK-2) < 0.5, CK-MB (CK-2) Rel Index 0.9, Troponin I < 0.02, Total Protein 6.4, Albumin 3.2 L, Globulin 3.2, Albumin/Globulin Ratio 1.0 L Result diagrams: 04/16/17 15:22 04/16/17 15:22 Orders (Tests/Meds): ORDERS Category Date Time Status Red Blood Cells Stat BBK 04/16/17 04:48 Results Type and Screen Stat BBK 04/16/17 04:[address] abdomen pelvis wo con Stat Cat Scan 04/16/17 14:23 Taken Occult Blood,Stool Stat Lab 04/16/17 14:22 Ordered - CT Data CT Scan: Abdomen, Pelvis Time Received: 17:[address] Reviewed: Yes: I have reviewed the patient's CT results, I have viewed the radiologist's interpretation Findings Narrative: chronic enterocolitis and proctitis - Jeffrey Inquiry Pt receiving controlled substance: No Jeffrey was queried for this patient: No General Adult HPI - General Chief complaint: Weakness Stated complaint: blood count low Time Seen by Provider: 04/16/17 14:18 Mode of Arrival: Wheelchair Limitations: No Limitations Description of Symptoms (Recalled from ER Triage Doc. by RN): Pt sent by family doc for abnormal labs. Pt has no complaints at this time besides feeling weak. - History of Present Illness HPI narrative: Sent to the ED by Dr. Michel in [place], her PCP, with history that she was diagnosed with Retinal Artery Occlusion about 1 1/2 months ago and also diagnosed with CAD by Dr. Pretty and had 2 stents placed the first week of March. She then developed Atrial Fibrillation and was started on Xarelto and Plavix and Aspirin was stoped. She was admitted here for Syncope by Dr. Yeager about 2 weeks ago and at that time her Aspirin was stopped and she was scheduld for an outpt. EGD and colonoscopy but those have not yet been done. Today saw Dr. Michel with a Black diarrhea and had a heg of 7.9 and inthe ED her stool is black and is hemoccult positive. She denies any abdominal pain Onset (ago): we
[2017-04-16 14:16] LABS: Occult Blood,Stool Positive (Negative)
--- NOTE | 2017-04-16 14:23 | CT_ITS ---
CT abdomen pelvis wo con COMPARISON: None HISTORY: Anemia, generalized weakness TECHNIQUE: Multiaxial scans obtained from hemidiaphragms the pelvic floor and were performed without IV contrast due to abnormal renal function tests. Sagittal and coronal reformats were evaluated as well. FINDINGS: The lower lung chavez are clear. There is minimal focal pleural scarring right posterior lateral hemidiaphragm. Liver appears grossly normal. The stomach is somewhat distended with ingested food particles and fluid but otherwise is normal. There are couple of calcifications within the spleen. The pancreas is grossly normal. The gallbladder small and contracted containing at least 2 calcified gallstones. There is a questionable tiny 1 mm calculus in the distal common bile duct or pancreatic duct. There is prominent arteriosclerotic calcification of the splenic artery and celiac artery. Prominent diffuse arterial sclerotic calcification of the abdominal aorta and proximal iliac arteries. The adrenal glands are normal. The kidneys are normal in size with tiny nonobstructing calculi in each kidney. The small bowel appears grossly normal. I do not definitely identify the appendix but no pericecal inflammatory changes. There is question mild diffuse wall thickening of the ascending and transverse colon but I feel this is due to lack of distention with very little stool present. The uterus is normal size and in the midline, urinary bladder is grossly normal, there is no free fluid in the pelvis. There is prominent degenerative disc disease at L5-S1 level. IMPRESSION: 1. Cholelithiasis. 2. Questionable tiny calculus distal common bile duct or distal pancreatic duct versus vascular calcification. There is no intrahepatic or extra hepatic biliary ductal dilatation if clinically indicated possibly MRCP should be considered. 3. Questionable wall thickening of the cecum and ascending and proximal transverse colon versus nondistention I somewhat favor the latter and doubt the possibility of colitis, I basically agree with the [facility] report.
[2017-04-16 15:33] LABS: Basophils # 0.1 K/mm3 (0-0.2); Basophils % 0.7 % (0.1-2.0); Eosinophils # 0.1 K/mm3 (0.0-0.4); Eosinophils % 1.5 % (0.1-12.0); Hematocrit 24.4 % (37.0-47.0); Lymphocytes # 2.1 K/mm3 (0.7-4.5); Lymphocytes % 29.7 K/mm3 (10-50); Mean Corpuscular HGB Conc 32.3 g/dL (31.8-35.4); Mean Corpuscular Hemoglobin 30.8 pg (27.0-31.2); Mean Corpuscular Volume 95.6 fl (81-99); Mean Platelet Volume 8.7 fl (7.4-10.4); Monocytes # 0.4 K/mm3 (0.1-1.0); Monocytes % 5.9 % (1.7-9.3); Neutrophils # 4.4 K/mm3 (1.8-7.8); Neutrophils % 62.1 % (37.0-80.0); Platelet Count 306 K/mm3 (142-424); Red Blood Count 2.55 M/mm3 (4.20-5.40); Red Cell Distribution Width 14.8 % (11.5-17.5); White Blood Count 7.1 K/mm3 (4.8-10.8)
[2017-04-16 15:35] LABS: Hemoglobin 7.9 g/dL (12.2-16.2)
[2017-04-16 15:57] LABS: Alanine Aminotransferase 19 U/L (12-78); Albumin Level 3.2 gm/dL (3.4-5.0); Alkaline Phosphatase 72 U/L (46-116); Anion Gap 10.5 mEq/L (5-15); Aspartate Amino Transferase 19 U/L (15-37); Bilirubin,Total 0.4 mg/dL (0.2-1.0); Blood Urea Nitrogen 26 mg/dL (7-18); CKMB Relative Index 0.9 U/L (0-4.0); Calcium 8.7 mg/dL (8.5-10.1); Carbon Dioxide 33 mmol/L (21.0-32.0); Chloride 99 mmol/L (98-107); Creatine Kinase 57 U/L (26-192); Creatine Kinase MB < 0.5 mg/ml (0.0-3.6); Creatinine Clearance Estimated 29 mL/min (0-300); Creatinine,Serum 1.97 mg/dL (0.55-1.02); Estimated Glomerular Filt Rate 25 ml/min (>60); GFR (African American) 31 ML/MIN (>60); Globulin 3.2 gm/dl (1.3-3.2); Glucose 97 mg/dL (74-106); Potassium 3.5 mmoL/L (3.5-5.1); Sodium 139 mmol/L (136-145); Total Protein,Serum 6.4 gm/dL (6.4-8.2); Troponin I < 0.02 ng/ml (0.00-0.06)
--- NOTE | 2017-04-16 19:24 | PC.NURSE ---
at 1820 report called from er with nurse stating that patient was on way up and that blood was ready in lab. went and got blood for patient and started blood. did not do med rec or admission at this time, and passed this along to welder 2nd shift nurse
--- NOTE | 2017-04-16 19:25 | PC.NURSE ---
PT FULL CODE, REPORT FROM TWYLA
--- NOTE | 2017-04-16 19:58 | PC.NURSE ---
report given to lavon collazo rn
[2017-04-17] VITALS (13 sets, daily range): BP systolic 101–134; BP diastolic 42–75; PULSE 58–88; RESP 18–20; TEMP 36.4–36.9; O2SAT 91–100
[2017-04-17 01:15] LABS: Hematocrit 28.1 % (37.0-47.0); Hemoglobin 9.7 g/dL (12.2-16.2)
--- NOTE | 2017-04-17 05:36 | PC.NURSE ---
PT FINISHED 2ND UNIT OF BLOOD. 1HR POST H&H OBTAINED. RESULT 9.7, PREVIOUS WAS 7.9. PT STATES SHE FEELS MUCH BETTER. NO CURRENT BLEEDING NOTED. IV SECURE AND PATENT SALINE LOCKED. SLEPT LONG INTERVALS AFTER BLOOD COMPLETED. PT TOLERATED BOTH UNITS WELL W/O AND S/S OF REACTION. PT STABLE. WILL CONTINUE TO MONITOR. REPORT TO BE GIVEN TO ONCOMING NURSE.
--- NOTE | 2017-04-17 07:21 | HMH.HP ---
*Admission Date: 04/16/17 *Chief complaint: Black tarry stools *History of present illness: 66-year-old female presented to the emergency department with complaint of black tarry stools and lightheadedness. Patient has already been hospitalized 3 times at this facility since late February for the following reasons: Syncope and coronary artery disease with stenting of RCA, atrial fibrillation with rapid ventricular response, symptomatic anemia requiring blood transfusion. Yesterday apparently the patient was seeing her primary care physician and mentioned that she had been passing some black stools. Patient is on aspirin, Plavix, Xarelto and he became concerned about possible anemia due to associated weakness. Patient was advised to come to the emergency department here. In the emergency department she was found to be mildly anemic with a hemoglobin of 7.9 and had dark tarry stools with Hemoccult positive testing. CT scan of the abdomen was performed, although the patient denies any abdominal pain, which showed some enterocolitis. Patient denies any difficulty with appetite or passing stools. She denies fevers or chills. Incidental findings on CT scan also included some common bile duct stones. Patient was admitted and transfused 2 units of packed red blood cells. At her last hospitalization 2 weeks ago she was transfused and discharged for outpatient follow-up for scopes. She has yet to have EGD or colonoscopy. She has never had a colonoscopy. This morning patient states she feels well. She notices improvement in malaise since transfusion. She reports the black stools have been present for approximately 2 weeks [facility] History Medical History: Reports:: Anxiety, Asthma, Atherosclerotic Heart Disease, Atrial Fibrillation, Chronic Obstructive Pulmonary Disease (COPD), Coronary Artery Disease, Cerebrovascular Accident, Gastrointestinal Bleed, Heart Murmur, Hyperlipidemia, Hypertension, Lung Disease, Transient Ischemic Attacks (TIA), Valvular Heart Disease Denies:: Cancer, Diabetes Mellitus Type 1, Diabetes Mellitus Type 2, MRSA Other Medical History: Reports: Anemia, Cataracts (cataract removal both eyes) Laterality Cases: Bilateral: Cataract Other Surgeries: Yes: Coronary Stent, Other (cyst removed from face) Amputation: No Fractures: No - *Social History Educational Level: Attended High School Smoking Status: Current every day smoker Tobacco Type: cigarettes # Packs/Day (cigarettes): 1 Alcohol Intake: never Alcohol Intake Frequency:: other Substance Use Type: denies use Occupational Status: retired Housing: house Household Members: spouse - Psychiatric History Expresses thoughts of harming self/others: None Suicide Plan Description: No Plan Pschychiatric History:: Reports:: Anxiety *Family Hx:: Heart Attack, Coronary Artery Disease, Diabetes, Hypertension Review of Systems - Constitutional Denies body ache(s), Denies chills, Denies daytime sleepiness - Eyes Denies blind spots - ENT Denies dry mouth - *Cardiovascular Denies chest pain, Denies chest pain at rest, Denies shortness of breath - *Respiratory Reports cough, Denies chest congestion - *Gastrointestinal Reports change in bowel habits, Reports change in stools, Denies abdominal pain, Denies belching, Denies bloating - *Genitourinary Denies abnormal vaginal bleeding Meds Home Medications Medication Instructions Recorded Confirmed Type Albuterol Sulfate [Albuterol 2.5 mg IH QID 03/21/17 04/16/17 History 0.083% 2.5mg/3mL neb] Benazepril HCl 20 mg PO BID 03/21/17 04/16/17 History Budesonide/Formoterol Fumarate 2 puffs IH BID 03/21/17 04/16/17 History [Symbicort 160-4.5 Mcg Inhaler] Clopidogrel Bisulfate [Plavix 75mg 75 mg PO DAILY 03/21/17 04/16/17 History Tab] Doxepin HCl [Sinequan 10mg capsule] 10 mg PO HS 03/21/17 04/16/17 History Escitalopram Oxalate 20 mg PO DAILY 03/21/17 04/16/17 History Furosemide [Furosemide 40MG tAB] 40 mg PO
--- NOTE | 2017-04-17 07:24 | P.HP_ITS ---
*Admission Date: 04/16/17 *Chief complaint: Black tarry stools *History of present illness: 66-year-old female presented to the emergency department with complaint of black tarry stools and lightheadedness. Patient has already been hospitalized 3 times at this facility since late February for the following reasons: Syncope and coronary artery disease with stenting of RCA, atrial fibrillation with rapid ventricular response, symptomatic anemia requiring blood transfusion. Yesterday apparently the patient was seeing her primary care physician and mentioned that she had been passing some black stools. Patient is on aspirin, Plavix, Xarelto and he became concerned about possible anemia due to associated weakness. Patient was advised to come to the emergency department here. In the emergency department she was found to be mildly anemic with a hemoglobin of 7.9 and had dark tarry stools with Hemoccult positive testing. CT scan of the abdomen was performed, although the patient denies any abdominal pain, which showed some enterocolitis. Patient denies any difficulty with appetite or passing stools. She denies fevers or chills. Incidental findings on CT scan also included some common bile duct stones. Patient was admitted and transfused 2 units of packed red blood cells. At her last hospitalization 2 weeks ago she was transfused and discharged for outpatient follow-up for scopes. She has yet to have EGD or colonoscopy. She has never had a colonoscopy. This morning patient states she feels well. She notices improvement in malaise since transfusion. She reports the black stools have been present for approximately 2 weeks [facility] History Medical History: Reports:: Anxiety, Asthma, Atherosclerotic Heart Disease, Atrial Fibrillation, Chronic Obstructive Pulmonary Disease (COPD), Coronary Artery Disease, Cerebrovascular Accident, Gastrointestinal Bleed, Heart Murmur, Hyperlipidemia, Hypertension, Lung Disease, Transient Ischemic Attacks (TIA), Valvular Heart Disease Denies:: Cancer, Diabetes Mellitus Type 1, Diabetes Mellitus Type 2, MRSA Other Medical History: Reports: Anemia, Cataracts (cataract removal both eyes) Laterality Cases: Bilateral: Cataract Other Surgeries: Yes: Coronary Stent, Other (cyst removed from face) Amputation: No Fractures: No - *Social History Educational Level: Attended High School Smoking Status: Current every day smoker Tobacco Type: cigarettes # Packs/Day (cigarettes): 1 Alcohol Intake: never Alcohol Intake Frequency:: other Substance Use Type: denies use Occupational Status: retired Housing: house Household Members: spouse - Psychiatric History Expresses thoughts of harming self/others: None Suicide Plan Description: No Plan Pschychiatric History:: Reports:: Anxiety *Family Hx:: Heart Attack, Coronary Artery Disease, Diabetes, Hypertension Review of Systems - Constitutional Denies body ache(s), Denies chills, Denies daytime sleepiness - Eyes Denies blind spots - ENT Denies dry mouth - *Cardiovascular Denies chest pain, Denies chest pain at rest, Denies shortness of breath - *Respiratory Reports cough, Denies chest congestion - *Gastrointestinal Reports change in bowel habits, Reports change in stools, Denies abdominal pain , Denies belching, Denies bloating - *Genitourinary Denies abnormal vaginal bleeding Meds Home Medications Medication Instructions Recorded Confirmed Type Albuterol Sulfate [Albuterol 2.5 mg IH QID 03/21/17 04/16/17 History 0.083% 2.5mg/3mL neb] Benazepril HCl 20 mg PO BID 03/21/17 04/16/17 History
[2017-04-17 07:39] LABS: Basophils % 0.6 % (0.1-2.0); Eosinophils # 0.1 K/mm3 (0.0-0.4); Eosinophils % 1.7 % (0.1-12.0); Hematocrit 29.9 % (37.0-47.0); Lymphocytes % 32.7 K/mm3 (10-50); Mean Corpuscular HGB Conc 33.4 g/dL (31.8-35.4); Mean Corpuscular Hemoglobin 30.2 pg (27.0-31.2); Mean Corpuscular Volume 90.4 fl (81-99); Mean Platelet Volume 9.2 fl (7.4-10.4); Monocytes # 0.4 K/mm3 (0.1-1.0); Monocytes % 7.3 % (1.7-9.3); Neutrophils # 3.5 K/mm3 (1.8-7.8); Neutrophils % 57.7 % (37.0-80.0); Platelet Count 236 K/mm3 (142-424); Red Cell Distribution Width 15.1 % (11.5-17.5)
[2017-04-17 08:14] LABS: Alanine Aminotransferase 20 U/L (12-78); Alkaline Phosphatase 66 U/L (46-116); Anion Gap 10.1 mEq/L (5-15); Aspartate Amino Transferase 17 U/L (15-37); Bilirubin,Direct 0.3 mg/dL (0.0-0.2); Bilirubin,Total 0.8 mg/dL (0.2-1.0); Blood Urea Nitrogen 20 mg/dL (7-18); Carbon Dioxide 33 mmol/L (21.0-32.0); Chloride 103 mmol/L (98-107); Creatinine Clearance Estimated 38 mL/min (0-300); Estimated Glomerular Filt Rate 35 ml/min (>60); GFR (African American) 42 ML/MIN (>60); Glucose 86 mg/dL (74-106); Potassium 3.1 mmoL/L (3.5-5.1); Sodium 143 mmol/L (136-145); Total Protein,Serum 5.5 gm/dL (6.4-8.2)
--- NOTE | 2017-04-17 16:24 | HMH.PHAVTE ---
[facility] Pharmacy VTE Monitoring - Patient Demographics Admission date: 04/17/17 Report Date: 04/17/17 Time: 16:24 Allergies/Adverse Reactions: Patient Allergies levofloxacin [From Levaquin] Allergy (Mild, Verified 04/16/17 14:04) Height: 1.55 m Weight: 66.026 kg Patient Problems: Current Active Problems (Last Reviewed 03/22/17 @ 01:38 by Sonia Read RN) Acute GI bleeding (Acute) Blood loss anemia (Acute) - VTE Risk Labs: VTE Related Lab Results Hgb 10.0 g/dL (12.2-16.2) L 04/17/17 07:30 Hct 29.9 % (37.0-47.0) L 04/17/17 07:30 Plt Count 236 K/mm3 (142-424) 04/17/17 07:30 BUN 20 mg/dL (7-18) H 04/17/17 07:30 Creatinine 1.50 mg/dL (0.55-1.02) H D 04/17/17 07:30 Estimated Creat Clear 38 mL/min (0-300) 04/17/17 07:30 Was VTE Risk Assessment Performed: Yes VTE Score: 4 VTE Risk Level: Low Risk - VTE Diagnosis Confirmed Comment: PATIENT WITH LOVENOX ORDERED
[2017-04-17 17:03] LABS: Hematocrit 28.7 % (37.0-47.0); Hemoglobin 9.8 g/dL (12.2-16.2)
--- NOTE | 2017-04-17 18:51 | PC.NURSE ---
A&O X3. Lungs w/rhonchi and wheezes t/o. Pt on 2l NC, O2 sats running in 90's. Pt reports an occasionally productive cough w/sputum being both thick and thin and clear in color. Pt has ambulated to and from bathroom on standby assist. Pt NPO after MD for consult w/Dr. Uribe. Pt verbalizes understanding. Scattered bruising noted on body, pt is on blood thinners. No complaints verbalized. Will continue to monitor.
--- NOTE | 2017-04-17 19:58 | PC.NURSE ---
PT FULL CODE, REPORT FROM LUIS
[2017-04-18] VITALS (14 sets, daily range): BP systolic 80–128; BP diastolic 40–58; PULSE 54–68; RESP 16–18; TEMP 36.4–36.9; O2SAT 86–98; BMI 27.4
--- NOTE | 2017-04-18 05:35 | PC.NURSE ---
PT ALERT AND ORIENTED. SLEPT LONG INTERVALS. RESPIRATIONS EVEN AND UNLABORED WITH BREATH SOUNDS SCATTERED WHEEZES AND RHONCHI. NO C/O PAIN OR DISCOMFORT. PT NPO SINCE MIDNIGHT FOR CONSULT WITH DR. KEENAN TODAY. IV SECURE, SALINE LOCKED, PATENT. PT STABLE. WILL CONTINUE TO MONITOR. REPORT TO BE GIVEN TO ONCOMING NURSE.
[2017-04-18 06:47] LABS: Basophils # 0.1 K/mm3 (0-0.2); Basophils % 0.8 % (0.1-2.0); Eosinophils # 0.1 K/mm3 (0.0-0.4); Eosinophils % 2.2 % (0.1-12.0); Hematocrit 32.6 % (37.0-47.0); Hemoglobin 10.6 g/dL (12.2-16.2); Lymphocytes # 2.3 K/mm3 (0.7-4.5); Lymphocytes % 40.3 K/mm3 (10-50); Mean Corpuscular HGB Conc 32.3 g/dL (31.8-35.4); Mean Corpuscular Hemoglobin 29.9 pg (27.0-31.2); Mean Corpuscular Volume 92.5 fl (81-99); Mean Platelet Volume 8.5 fl (7.4-10.4); Monocytes # 0.5 K/mm3 (0.1-1.0); Monocytes % 8.2 % (1.7-9.3); Neutrophils # 2.8 K/mm3 (1.8-7.8); Neutrophils % 48.6 % (37.0-80.0); Platelet Count 272 K/mm3 (142-424); Red Blood Count 3.53 M/mm3 (4.20-5.40); White Blood Count 5.8 K/mm3 (4.8-10.8)
--- NOTE | 2017-04-18 07:29 | P.PN_ITS ---
Internal Medicine - PN: Subj *Date: 04/18/17 *Time: 07:28 Interval history: Patient denies abdominal pain or problems yesterday. Exam Vital signs and Labs for Last 24 Hours: Temp Pulse Resp BP Pulse Ox 98.1 F 62 17 128/46 96 04/18/17 04:00 04/18/17 06:02 04/18/17 04:00 04/18/17 04:00 04/18/17 04:00 Laboratory Results - last 24 hr 04/17/17 07:30: WBC 6.0, RBC 3.30 L D, Hgb 10.0 L, Hct 29.9 L, MCV 90.4, MCH 30.2, MCHC 33.4, RDW 15.1, Plt Count 236, MPV 9.2, Neut % (Auto) 57.7, Lymph % ( Auto) 32.7, [place] % (Auto) 7.3, Eos % (Auto) 1.7, Baso % (Auto) 0.6, Neut # (Auto ) 3.5, Lymph # (Auto) 2.0, [place] # (Auto) 0.4, Eos # (Auto) 0.1, Baso # (Auto) 0.0 04/17/17 07:30: Sodium 143, Potassium 3.1 L, Chloride 103, Carbon Dioxide 33 H, Anion Gap 10.1, BUN 20 H, Creatinine 1.50 H D, Estimated Creat Clear 38, Estimated GFR 35 L, Est GFR ( Amer) 42 L D, Glucose 86, Total Bilirubin 0.8, Direct Bilirubin 0.3 H, AST 17, ALT 20, Alkaline Phosphatase 66, Total Protein 5.5 L, Albumin 3.0 L 04/17/17 16:55: Hgb 9.8 L, Hct 28.7 L 04/18/17 06:15: WBC 5.8, RBC 3.53 L, Hgb 10.6 L, Hct 32.6 L, MCV 92.5, MCH 29.9 , MCHC 32.3, RDW 15.0, Plt Count 272, MPV 8.5, Neut % (Auto) 48.6, Lymph % (Auto ) 40.3, [place] % (Auto) 8.2, Eos % (Auto) 2.2, Baso % (Auto) 0.8, Neut # (Auto) 2.8, Lymph # (Auto) 2.3, [place] # (Auto) 0.5, Eos # (Auto) 0.1, Baso # (Auto) 0.1 I & O for Last 24 hours: Intake & Output 04/15/17 04/16/17 04/17/17 04/18/17 11:59 11:59 11:59 11:59 Intake Total 315 / 315 720 / 720 Output Total 0 / 0 Balance 315 / 315 720 / 720 Weight 145 lb 9 oz 145 lb 9 oz Narrative: She is in no distress. Lungs are distant but clear. Heart has a regular rate and rhythm. Abdomen is soft and nontender Assessment and Plan (1) Upper GI bleed Current visit: No Status: Acute Category: Medical Code(s): K92.2 - Gastrointestinal hemorrhage, unspecified (2) Blood loss anemia Current visit: Yes Status: Acute Category: Medical Code(s): D50.0 - Iron deficiency anemia secondary to blood loss (chronic) (3) Anemia Current visit: No Status: Acute Category: Medical Code(s): D64.9 - Anemia , unspecified (4) Aortic valve stenosis Current visit: No Status: Chronic Qualifiers: Cardiac valve disease etiology: etiology unspecified Qualified Code(s): I35.0 - Nonrheumatic aortic (valve) stenosis Category: Medical Code(s): I35.0 - Nonrheumatic aortic (valve) stenosis (5) CAD (coronary artery disease) Current visit: No Status: Chronic Qualifiers: Category: Medical Code(s): I25.10 - Atherosclerotic heart disease of [place] coronary artery without angina pectoris (6) Paroxysmal A-fib Current visit: No Status: Chronic Category: Medical Code(s): I48.0 - Paroxysmal atrial fibrillation (7) Pulmonary emphysema Current visit: No Status: Chronic Qualifiers: Emphysema type: other Qualified Code(s): J43.8 - Other emphysema Category: Medical Code(s): J43.9 - Emphysema, unspecified (8) Tobacco use Current visit: No Status: Chronic Category: Social Hx Code(s): Z72.0 - Tobacco use - Assessment and plan all Dx Assessment and Plan for all problems:: GI consult today for scopes
--- NOTE | 2017-04-18 08:32 | HMH.CARDCON2 ---
History of Present Illness Consult date: 04/18/17 Requesting physician: Adam Newby Chief complaint: weakness with black, tarry stools History of present illness: 66-year-old female presented to the emergency department with complaint of black tarry stools and lightheadedness. Patient has already been hospitalized 3 times at this facility since late February for the following reasons: Syncope and coronary artery disease with stenting of RCA, atrial fibrillation with rapid ventricular response, symptomatic anemia requiring blood transfusion. Yesterday apparently the patient was seeing her primary care physician and mentioned that she had been passing some black stools. Patient is on aspirin, Plavix, Xarelto and he became concerned about possible anemia due to associated weakness. Patient was advised to come to the emergency department here. In the emergency department she was found to be mildly anemic with a hemoglobin of 7.9 and had dark tarry stools with Hemoccult positive testing. CT scan of the abdomen was performed, although the patient denies any abdominal pain, which showed some enterocolitis. Patient denies any difficulty with appetite or passing stools. She denies fevers or chills. Incidental findings on CT scan also included some common bile duct stones. Patient was admitted and transfused 2 units of packed red blood cells. At her last hospitalization 2 weeks ago she was transfused and discharged for outpatient follow-up for scopes. She has yet to have EGD or colonoscopy. She has never had a colonoscopy. This morning patient states she feels well. She notices improvement in malaise since transfusion. She reports the black stools have been present for approximately 2 weeks The above per Dr. Newby. Patient denies any chest pain, pressure or tightness. During the last hospitalization patient's aspirin was discontinued after discussion with Dr. Newby. Patient has just been on Plavix and Xarelto. CHADS-VASC score is at least 4 (female, age >65, CAD, HTN). Review of Systems - *Cardiovascular Denies chest pain - *Respiratory Denies shortness of breath - *Gastrointestinal Reports black, tarry stools - *Neurologic Reports weakness [facility] History Medical History: Reports:: Anxiety, Asthma, Atherosclerotic Heart Disease, Atrial Fibrillation, Chronic Obstructive Pulmonary Disease (COPD), Coronary Artery Disease, Cerebrovascular Accident, Gastrointestinal Bleed, Heart Murmur, Hyperlipidemia, Hypertension, Lung Disease, Transient Ischemic Attacks (TIA), Valvular Heart Disease Denies:: Cancer, Diabetes Mellitus Type 1, Diabetes Mellitus Type 2, MRSA Other Medical History: Reports: Anemia, Cataracts (cataract removal both eyes) Laterality Cases: Bilateral: Cataract Other Surgeries: Yes: Coronary Stent, Other (cyst removed from face) Amputation: No Fractures: No - *Social History Educational Level: Attended High School Smoking Status: Current every day smoker Tobacco Type: cigarettes # Packs/Day (cigarettes): 1 Alcohol Intake: never Alcohol Intake Frequency:: other Substance Use Type: denies use Occupational Status: retired Housing: house Household Members: spouse - Psychiatric History Expresses thoughts of harming self/others: None Suicide Plan Description: No Plan Pschychiatric History:: Reports:: Anxiety *Family Hx:: Heart Attack, Coronary Artery Disease, Diabetes, Hypertension Meds Home Medications Medication Instructions Recorded Confirmed Type Albuterol Sulfate [Albuterol 2.5 mg IH QID 03/21/17 04/16/17 History 0.083% 2.5mg/3mL neb] Benazepril HCl 20 mg PO BID 03/21/17 04/16/17 History Budesonide/Formoterol Fumarate 2 puffs IH BID 03/21/17 04/16/17 History [Symbicort 160-4.5 Mcg Inhaler] Clopidogrel Bisulfate [Plavix 75mg 75 mg PO DAILY 03/21/17 04/16/17 History Tab] Doxepin HCl [Sinequan 10mg capsule] 10 mg PO HS 03/21/17 04/16/17 History Escitalopram Oxalate 20 mg PO DAILY 03/21/1704/16
--- NOTE | 2017-04-18 08:35 | P.CONS_ITS ---
History of Present Illness Consult date: 04/18/17 Requesting physician: Adam Newby Chief complaint: weakness with black, tarry stools History of present illness: 66-year-old female presented to the emergency department with complaint of black tarry stools and lightheadedness. Patient has already been hospitalized 3 times at this facility since late February for the following reasons: Syncope and coronary artery disease with stenting of RCA, atrial fibrillation with rapid ventricular response, symptomatic anemia requiring blood transfusion. Yesterday apparently the patient was seeing her primary care physician and mentioned that she had been passing some black stools. Patient is on aspirin, Plavix, Xarelto and he became concerned about possible anemia due to associated weakness. Patient was advised to come to the emergency department here. In the emergency department she was found to be mildly anemic with a hemoglobin of 7.9 and had dark tarry stools with Hemoccult positive testing. CT scan of the abdomen was performed, although the patient denies any abdominal pain, which showed some enterocolitis. Patient denies any difficulty with appetite or passing stools. She denies fevers or chills. Incidental findings on CT scan also included some common bile duct stones. Patient was admitted and transfused 2 units of packed red blood cells. At her last hospitalization 2 weeks ago she was transfused and discharged for outpatient follow-up for scopes. She has yet to have EGD or colonoscopy. She has never had a colonoscopy. This morning patient states she feels well. She notices improvement in malaise since transfusion. She reports the black stools have been present for approximately 2 weeks The above per Dr. Newby. Patient denies any chest pain, pressure or tightness. During the last hospitalization patient's aspirin was discontinued after discussion with Dr. Newby. Patient has just been on Plavix and Xarelto. CHADS-VASC score is at least 4 (female, age >65, CAD, HTN). Review of Systems - *Cardiovascular Denies chest pain - *Respiratory Denies shortness of breath - *Gastrointestinal Reports black, tarry stools - *Neurologic Reports weakness [facility] History Medical History: Reports:: Anxiety, Asthma, Atherosclerotic Heart Disease, Atrial Fibrillation, Chronic Obstructive Pulmonary Disease (COPD), Coronary Artery Disease, Cerebrovascular Accident, Gastrointestinal Bleed, Heart Murmur, Hyperlipidemia, Hypertension, Lung Disease, Transient Ischemic Attacks (TIA), Valvular Heart Disease Denies:: Cancer, Diabetes Mellitus Type 1, Diabetes Mellitus Type 2, MRSA Other Medical History: Reports: Anemia, Cataracts (cataract removal both eyes) Laterality Cases: Bilateral: Cataract Other Surgeries: Yes: Coronary Stent, Other (cyst removed from face) Amputation: No Fractures: No - *Social History Educational Level: Attended High School Smoking Status: Current every day smoker Tobacco Type: cigarettes # Packs/Day (cigarettes): 1 Alcohol Intake: never Alcohol Intake Frequency:: other Substance Use Type: denies use Occupational Status: retired Housing: house Household Members: spouse - Psychiatric History Expresses thoughts of harming self/others: None Suicide Plan Description: No Plan Pschychiatric History:: Reports:: Anxiety *Family Hx:: Heart Attack, Coronary Artery Disease, Diabetes, Hypertension Meds Home Medications Medication Instructions Recorded Confirmed Type Albuterol Sulfate [Albuterol 2.5 mg IH QID 03/21/17 04/16/17 History 0.083% 2.5mg/3mL neb] Benazepril HCl 20 mg
--- NOTE | 2017-04-18 09:49 | P.PCN_ITS ---
[facility] Procedure Note Procedure Note:: Upper Endoscopy Procedure Report: Esophagogastroduodenoscopy with cold biopsies Endoscopost: Waldemar Uribe II, MD Referring Physician: Adam Newby MD Date of Procedure: April 18, 2017 Equipment: Olympus GIF 180 standard upper endoscope Sedation: MAC sedation Indications: Mrs. Scanlon is a 66-year-old female with melanotic stools. She came in with a hemoglobin of 7.9 and received 2 units of PRBCs. Her hemoglobin and hematocrit did improve to 10.6 and 32.6. She reports no hematemesis. She has had some weight loss. She is on aspirin, Plavix and Xarelto because of a coronary stent placement. She has had diarrhea for the last 3 days but mostly is regular. The patient's CAT scan of the abdomen and pelvis show some enterocolitis. The CAT scan also showed evidence of common bile duct stones. The patient has never had an EGD or colonoscopy. The patient has had some weakness, fatigue and malaise. Procedure: Prior to the procedure, a history and physical exam was performed, and patient' s medications and allergies were reviewed. The risks, benefits and alternatives of the sedation and procedure were discussed with the patient. All questions were answered and informed consent was obtained. The patient was brought to the procedure room. Patient identification and proposed procedure were verified by the physician and the nurse. The patient was placed in a left lateral decubitus position and the scope was passed under direct vision. Throughout the procedure, the patient's blood pressure, pulse, and oxygen saturations were monitored continuously. The upper GI endoscopy was accomplished without difficulty. The patient tolerated the procedure well. Findings: The scope was passed directly into the upper esophagus and advanced to the third portion of the duodenum. The post bulbar duodenum and duodenal bulb were normal with normal mucosa and conniventes. There were no AVMs/ angiodysplasias. There was a single duodenal polyp in the second portion of the duodenum that was removed via cold biopsy. This polyp was 4 mm in size. The scope was withdrawn through a normal duodenal bulb and pylorus into the stomach. There was some chronic gastritis of the body and fundus of the stomach. There was also evidence of mild linear reactive antritis. Cold biopsies were taken from the antrum and also from the body and fundus of the stomach. Upon retroflexion there was no significant hiatal hernia. The scope was then withdrawn into the esophagus. The remainder of the esophageal mucosa was normal. Impression: 1. Mild chronic gastritis 2. Diminutive 4 mm duodenal polyp Plan: There was no source for the patient's anemia or melanotic stools. I would recommend colonoscopy and if the colonoscopy is negative video capsule enteroscopy. I will discuss this with Dr. Newby. I also would like to evaluate and determine whether the patient has elevated biliary chemistries. She will also likely need ERCP with clearance of the common bile duct to reduce her risk of cholangitis or gallstone pancreatitis.
--- NOTE | 2017-04-18 10:08 | PC.NURSE ---
PT OFF UNIT AT THIS TIME. DOWN FOR EGD.
--- NOTE | 2017-04-18 13:17 | P.PN_ITS ---
[facility] Anesthesia Checklist - Patient Identification Patient Identification: Arm Band - Structural Data Admitted From: Inpatient Planned Operative Procedure/s: egd Consent for Planned Operative Procedure(s) Verified: Yes Verified Documents: Surgical Consent, History and Physical - NPO Status Verified Time NPO: 00:00 - Additional verifications Anesthesia Reactions: No - Airway Assessment C-Spine Mobility Assessed: Yes (mp2) TMJ Mobility Assessed: Yes Dentition: Edentulous - Neurological Assessment Level of Consciousness: Awake, Alert - Anesthesia Plan Anesthesia Risk discussed: Yes Anesthesia Plan: Verified ASA Class: III Anesthesia Type: MAC [facility] Anesthesia HX I have reviewed the patient's past medical history: Yes Medical History: Reports:: Anxiety, Asthma, Atherosclerotic Heart Disease, Atrial Fibrillation, Chronic Obstructive Pulmonary Disease (COPD), Coronary Artery Disease, Cerebrovascular Accident, Gastrointestinal Bleed, Heart Murmur, Hyperlipidemia, Hypertension, Lung Disease, Transient Ischemic Attacks (TIA), Valvular Heart Disease Denies:: Cancer, Diabetes Mellitus Type 1, Diabetes Mellitus Type 2, MRSA Other Medical History: Reports: Anemia, Cataracts (cataract removal both eyes) Laterality Cases: Bilateral: Cataract Other Surgeries: Yes: Coronary Stent, Other (cyst removed from face) Amputation: No Fractures: No *Family Hx:: Heart Attack, Coronary Artery Disease, Diabetes, Hypertension
[2017-04-19] VITALS (10 sets, daily range): BP systolic 94–120; BP diastolic 45–48; PULSE 53–70; RESP 18–20; TEMP 36.2–37.2; O2SAT 95–98
--- NOTE | 2017-04-19 04:47 | PC.NURSE ---
PT HAS SLEPT. NO COMPLAINTS. NPO FOR TEST TODAY. PT AMBULATING WITHOUT DIFFICULTY.
--- NOTE | 2017-04-19 06:30 | MR_ITS ---
MR abdomen wo con CLINICAL INDICATION: Choledocholithiasis evaluation, follow-up abnormal CT scan, follow-up abnormal CT scan ITS.REASON: MRCP because of common bile duct stones ORDERING PHYSICIAN: Adam Newby MD PATIENT AGE: 66 years COMPARISON: 04/16/2017 CT scan TECHNIQUE: Standard nonenhanced multiplanar multiecho sequences performed of the abdomen with MRCP reformats FINDINGS: The liver, spleen, adrenal glands, and pancreas has an unremarkable appearance. There is a 1 cm left renal cyst along the lower pole There are gallstones present. No intra or extrahepatic biliary ductal dilatation. No pancreatic ductal dilatation. No intra or extra hepatic biliary ductal dilatation. Motion artifact does somewhat obscure fine detail. No obvious common bile duct stone. Images are however somewhat limited due to motion artifact.. IMPRESSION: 1. Cholelithiasis. 2. No biliary or pancreatic ductal dilatation with no obvious obstructing stone
[2017-04-19 06:36] LABS: Basophils % 0.6 % (0.1-2.0); Eosinophils # 0.1 K/mm3 (0.0-0.4); Hematocrit 30.6 % (37.0-47.0); Hemoglobin 9.9 g/dL (12.2-16.2); Lymphocytes # 2.4 K/mm3 (0.7-4.5); Lymphocytes % 40.1 K/mm3 (10-50); Mean Corpuscular HGB Conc 32.4 g/dL (31.8-35.4); Mean Corpuscular Hemoglobin 30.2 pg (27.0-31.2); Mean Corpuscular Volume 93.3 fl (81-99); Monocytes # 0.5 K/mm3 (0.1-1.0); Monocytes % 8.5 % (1.7-9.3); Neutrophils # 2.9 K/mm3 (1.8-7.8); Neutrophils % 48.6 % (37.0-80.0); Platelet Count 243 K/mm3 (142-424); Red Blood Count 3.28 M/mm3 (4.20-5.40); Red Cell Distribution Width 14.8 % (11.5-17.5); White Blood Count 5.9 K/mm3 (4.8-10.8)
--- NOTE | 2017-04-19 06:46 | HMH.ACPN2 ---
Internal Medicine - PN: Subj *Date: 04/19/17 *Time: 06:46 Interval history: Patient is without complaints. She is scheduled for MRCP this morning for stones in her common bile duct as seen on CT scan. Patient will undergo colonoscopy on Tuesday of this week for her upper GI bleed. Exam Vital signs and Labs for Last 24 Hours: Temp Pulse Resp BP Pulse Ox 97.1 F L 62 18 120/48 98 04/19/17 05:36 04/19/17 05:59 04/19/17 05:36 04/19/17 05:36 04/19/17 05:36 Laboratory Results - last 24 hr 04/18/17 06:15: WBC 5.8, RBC 3.53 L, Hgb 10.6 L, Hct 32.6 L, MCV 92.5, MCH 29.9, MCHC 32.3, RDW 15.0, Plt Count 272, MPV 8.5, Neut % (Auto) 48.6, Lymph % (Auto) 40.3, [place] % (Auto) 8.2, Eos % (Auto) 2.2, Baso % (Auto) 0.8, Neut # (Auto) 2.8, Lymph # (Auto) 2.3, [place] # (Auto) 0.5, Eos # (Auto) 0.1, Baso # (Auto) 0.1 I & O for Last 24 hours: Intake & Output 04/16/17 04/17/17 04/18/17 04/19/17 11:59 11:59 11:59 11:59 Intake Total 315 / 315 720 / 720 600 / 600 Output Total 0 / 0 200 / 200 600 / 600 Balance 315 / 315 520 / 520 0 / 0 Weight 145 lb 9 oz 145 lb 9 oz 145 lb 8.998 oz Narrative: She appears comfortable. Abdomen remains soft and nontender Assessment and Plan (1) Upper GI bleed Current visit: No Status: Acute Category: Medical Code(s): K92.2 - Gastrointestinal hemorrhage, unspecified (2) Blood loss anemia Current visit: Yes Status: Acute Category: Medical Code(s): D50.0 - Iron deficiency anemia secondary to blood loss (chronic) (3) Anemia Current visit: No Status: Acute Category: Medical Code(s): D64.9 - Anemia, unspecified (4) Aortic valve stenosis Current visit: No Status: Chronic Qualifiers: Cardiac valve disease etiology: etiology unspecified Qualified Code(s): I35.0 - Nonrheumatic aortic (valve) stenosis Category: Medical Code(s): I35.0 - Nonrheumatic aortic (valve) stenosis (5) CAD (coronary artery disease) Current visit: No Status: Chronic Qualifiers: Category: Medical Code(s): I25.10 - Atherosclerotic heart disease of [place] coronary artery without angina pectoris (6) Paroxysmal A-fib Current visit: No Status: Chronic Category: Medical Code(s): I48.0 - Paroxysmal atrial fibrillation (7) Pulmonary emphysema Current visit: No Status: Chronic Qualifiers: Emphysema type: other Qualified Code(s): J43.8 - Other emphysema Category: Medical Code(s): J43.9 - Emphysema, unspecified (8) Tobacco use Current visit: No Status: Chronic Category: Social Hx Code(s): Z72.0 - Tobacco use - Assessment and plan all Dx Assessment and Plan for all problems:: MRCP today. Restart Plavix temporarily. Colonoscopy Tuesday
--- NOTE | 2017-04-19 06:49 | P.PN_ITS ---
Internal Medicine - PN: Subj *Date: 04/19/17 *Time: 06:46 Interval history: Patient is without complaints. She is scheduled for MRCP this morning for stones in her common bile duct as seen on CT scan. Patient will undergo colonoscopy on Tuesday of this week for her upper GI bleed. Exam Vital signs and Labs for Last 24 Hours: Temp Pulse Resp BP Pulse Ox 97.1 F L 62 18 120/48 98 04/19/17 05:36 04/19/17 05:59 04/19/17 05:36 04/19/17 05:36 04/19/17 05:36 Laboratory Results - last 24 hr 04/18/17 06:15: WBC 5.8, RBC 3.53 L, Hgb 10.6 L, Hct 32.6 L, MCV 92.5, MCH 29.9 , MCHC 32.3, RDW 15.0, Plt Count 272, MPV 8.5, Neut % (Auto) 48.6, Lymph % (Auto ) 40.3, [place] % (Auto) 8.2, Eos % (Auto) 2.2, Baso % (Auto) 0.8, Neut # (Auto) 2.8, Lymph # (Auto) 2.3, [place] # (Auto) 0.5, Eos # (Auto) 0.1, Baso # (Auto) 0.1 I & O for Last 24 hours: Intake & Output 04/16/17 04/17/17 04/18/17 04/19/17 11:59 11:59 11:59 11:59 Intake Total 315 / 315 720 / 720 600 / 600 Output Total 0 / 0 200 / 200 600 / 600 Balance 315 / 315 520 / 520 0 / 0 Weight 145 lb 9 oz 145 lb 9 oz 145 lb 8.998 oz Narrative: She appears comfortable. Abdomen remains soft and nontender Assessment and Plan (1) Upper GI bleed Current visit: No Status: Acute Category: Medical Code(s): K92.2 - Gastrointestinal hemorrhage, unspecified (2) Blood loss anemia Current visit: Yes Status: Acute Category: Medical Code(s): D50.0 - Iron deficiency anemia secondary to blood loss (chronic) (3) Anemia Current visit: No Status: Acute Category: Medical Code(s): D64.9 - Anemia , unspecified (4) Aortic valve stenosis Current visit: No Status: Chronic Qualifiers: Cardiac valve disease etiology: etiology unspecified Qualified Code(s): I35.0 - Nonrheumatic aortic (valve) stenosis Category: Medical Code(s): I35.0 - Nonrheumatic aortic (valve) stenosis (5) CAD (coronary artery disease) Current visit: No Status: Chronic Qualifiers: Category: Medical Code(s): I25.10 - Atherosclerotic heart disease of [place] coronary artery without angina pectoris (6) Paroxysmal A-fib Current visit: No Status: Chronic Category: Medical Code(s): I48.0 - Paroxysmal atrial fibrillation (7) Pulmonary emphysema Current visit: No Status: Chronic Qualifiers: Emphysema type: other Qualified Code(s): J43.8 - Other emphysema Category: Medical Code(s): J43.9 - Emphysema, unspecified (8) Tobacco use Current visit: No Status: Chronic Category: Social Hx Code(s): Z72.0 - Tobacco use - Assessment and plan all Dx Assessment and Plan for all problems:: MRCP today. Restart Plavix temporarily. Colonoscopy Tuesday
--- NOTE | 2017-04-19 15:52 | PC.NURSE ---
Pt remains at her baseline, no changes noted this shift, ambulates in room with no assistance. po intake is wdl, vss, call light in reach will continue to monitor
[2017-04-20] VITALS (8 sets, daily range): BP systolic 112–126; BP diastolic 41–57; PULSE 60–76; RESP 18–22; TEMP 36.3–37.2; O2SAT 93–98
--- NOTE | 2017-04-20 04:51 | PC.NURSE ---
Pt has rest well this shift. Had episode of tarry stools once this shift. Denies pain or discomfort. Rhonchi and wheezes noted during lung auscultation. BS active in all 4 qauds. VSS. Tolerating 2L NC well. No acute distress noted. Will continue to monitor.
[2017-04-20 07:00] LABS: Basophils % 0.5 % (0.1-2.0); Eosinophils # 0.1 K/mm3 (0.0-0.4); Eosinophils % 2.2 % (0.1-12.0); Hematocrit 30.6 % (37.0-47.0); Hemoglobin 9.9 g/dL (12.2-16.2); Lymphocytes # 2.4 K/mm3 (0.7-4.5); Lymphocytes % 40.7 K/mm3 (10-50); Mean Corpuscular HGB Conc 32.4 g/dL (31.8-35.4); Mean Corpuscular Hemoglobin 30.3 pg (27.0-31.2); Mean Corpuscular Volume 93.7 fl (81-99); Mean Platelet Volume 8.9 fl (7.4-10.4); Monocytes # 0.5 K/mm3 (0.1-1.0); Monocytes % 8.9 % (1.7-9.3); Neutrophils # 2.7 K/mm3 (1.8-7.8); Neutrophils % 47.6 % (37.0-80.0); Platelet Count 241 K/mm3 (142-424); Red Blood Count 3.27 M/mm3 (4.20-5.40); Red Cell Distribution Width 14.7 % (11.5-17.5); White Blood Count 5.8 K/mm3 (4.8-10.8)
--- NOTE | 2017-04-20 07:02 | P.PN_ITS ---
Internal Medicine - PN: Subj *Date: 04/20/17 *Time: 07:01 Interval history: Patient is without complaints this morning. She has been ambulating. She does request longer oxygen tubing Exam Vital signs and Labs for Last 24 Hours: Temp Pulse Resp BP Pulse Ox 98.1 F 76 22 117/51 93 L 04/20/17 04:00 04/20/17 05:51 04/20/17 04:00 04/20/17 04:00 04/20/17 04:00 I & O for Last 24 hours: Intake & Output 04/17/17 04/18/17 04/19/17 04/20/17 11:59 11:59 11:59 11:59 Intake Total 315 / 315 720 / 720 600 / 600 380 / 380 Output Total 0 / 0 200 / 200 600 / 600 1280 / 1280 Balance 315 / 315 520 / 520 0 / 0 -900 / -900 Weight 145 lb 9 oz 145 lb 9 oz 145 lb 8.998 oz Narrative: Patient is in no distress. Lungs are clear. Heart has a regular rate and rhythm. Assessment and Plan (1) Upper GI bleed Current visit: No Status: Acute Category: Medical Code(s): K92.2 - Gastrointestinal hemorrhage, unspecified (2) Blood loss anemia Current visit: Yes Status: Acute Category: Medical Code(s): D50.0 - Iron deficiency anemia secondary to blood loss (chronic) (3) Anemia Current visit: No Status: Acute Category: Medical Code(s): D64.9 - Anemia , unspecified (4) Aortic valve stenosis Current visit: No Status: Chronic Qualifiers: Cardiac valve disease etiology: etiology unspecified Qualified Code(s): I35.0 - Nonrheumatic aortic (valve) stenosis Category: Medical Code(s): I35.0 - Nonrheumatic aortic (valve) stenosis (5) CAD (coronary artery disease) Current visit: No Status: Chronic Qualifiers: Category: Medical Code(s): I25.10 - Atherosclerotic heart disease of [place] coronary artery without angina pectoris (6) Paroxysmal A-fib Current visit: No Status: Chronic Category: Medical Code(s): I48.0 - Paroxysmal atrial fibrillation (7) Pulmonary emphysema Current visit: No Status: Chronic Qualifiers: Emphysema type: other Qualified Code(s): J43.8 - Other emphysema Category: Medical Code(s): J43.9 - Emphysema, unspecified (8) Tobacco use Current visit: No Status: Chronic Category: Social Hx Code(s): Z72.0 - Tobacco use (9) Cholelithiasis Current visit: Yes Status: Acute Category: Medical Code(s): K80.20 - Calculus of gallbladder without cholecystitis without obstruction - Assessment and plan all Dx Assessment and Plan for all problems:: Await a.m. labs, transfuse if hemoglobin is less than 8. Colonoscopy on Tuesday. MRCP was negative for stones within the common bile duct
--- NOTE | 2017-04-20 07:33 | PC.NURSE ---
REPORT GIVEN TO Matt NAVARRO RN
--- NOTE | 2017-04-20 14:36 | DIET.NUTRFU ---
PO intakes on cardiac diet avg 75%. Plans for a colonoscopy tuesday. Pt requesting chix salad sandwich on white bread and will provide. Continue to monitor.
--- NOTE | 2017-04-20 17:04 | PC.NURSE ---
pt ambulating in room independently this shift and sitting up in chair. 2LNC applied. faint crackles bilateral posterior and diminished in the bases with left upper anterior wheezes. heart sound normal and bowel sounds normal. pt has had no complaints this shift. call light in reach. nonskids on. will continue to monitor pt condition.
[2017-04-21] VITALS (8 sets, daily range): BP systolic 108–130; BP diastolic 51–53; PULSE 52–64; RESP 16–18; TEMP 36.1–36.8; O2SAT 98–100
--- NOTE | 2017-04-21 04:44 | PC.NURSE ---
PT HAS SLEPT. NO COMPLAINTS. AMBULATING IN ROOM. CONTINUES ON 2L PER NC. PT DENIED DARK STOOLS.
[2017-04-21 06:59] LABS: Basophils % 0.8 % (0.1-2.0); Eosinophils # 0.2 K/mm3 (0.0-0.4); Eosinophils % 3.1 % (0.1-12.0); Hematocrit 30.2 % (37.0-47.0); Hemoglobin 9.8 g/dL (12.2-16.2); Lymphocytes # 2.1 K/mm3 (0.7-4.5); Lymphocytes % 39.2 K/mm3 (10-50); Mean Corpuscular HGB Conc 32.5 g/dL (31.8-35.4); Mean Corpuscular Hemoglobin 30.5 pg (27.0-31.2); Mean Corpuscular Volume 93.9 fl (81-99); Mean Platelet Volume 9.4 fl (7.4-10.4); Monocytes # 0.5 K/mm3 (0.1-1.0); Monocytes % 8.6 % (1.7-9.3); Neutrophils # 2.5 K/mm3 (1.8-7.8); Neutrophils % 48.2 % (37.0-80.0); Platelet Count 227 K/mm3 (142-424); Red Blood Count 3.21 M/mm3 (4.20-5.40); Red Cell Distribution Width 14.8 % (11.5-17.5); White Blood Count 5.3 K/mm3 (4.8-10.8)
--- NOTE | 2017-04-21 07:19 | HMH.ACPN2 ---
Internal Medicine - PN: Subj *Date: 04/21/17 *Time: 07:19 Interval history: Patient has no complaints. Her day went well yesterday. She is scheduled for colonoscopy tomorrow by Dr. Uribe Exam Vital signs and Labs for Last 24 Hours: Temp Pulse Resp BP Pulse Ox 98.3 F 62 16 108/52 98 04/21/17 04:00 04/21/17 05:53 04/21/17 04:00 04/21/17 04:00 04/21/17 05:53 Laboratory Results - last 24 hr 04/21/17 06:10: WBC 5.3, RBC 3.21 L, Hgb 9.8 L, Hct 30.2 L, MCV 93.9, MCH 30.5, MCHC 32.5, RDW 14.8, Plt Count 227, MPV 9.4, Neut % (Auto) 48.2, Lymph % (Auto) 39.2, [place] % (Auto) 8.6, Eos % (Auto) 3.1, Baso % (Auto) 0.8, Neut # (Auto) 2.5, Lymph # (Auto) 2.1, [place] # (Auto) 0.5, Eos # (Auto) 0.2, Baso # (Auto) 0.0 I & O for Last 24 hours: Intake & Output 04/18/17 04/19/17 04/20/17 04/21/17 11:59 11:59 11:59 11:59 Intake Total 720 / 720 600 / 600 740 / 740 720 / 720 Output Total 200 / 200 600 / 600 1280 / 1280 600 / 600 Balance 520 / 520 0 / 0 -540 / -540 120 / 120 Weight 145 lb 9 oz 145 lb 8.998 oz - Constitutional no acute distress Assessment and Plan (1) Upper GI bleed Current visit: No Status: Acute Category: Medical Code(s): K92.2 - Gastrointestinal hemorrhage, unspecified (2) Blood loss anemia Current visit: Yes Status: Acute Category: Medical Code(s): D50.0 - Iron deficiency anemia secondary to blood loss (chronic) (3) Anemia Current visit: No Status: Acute Category: Medical Code(s): D64.9 - Anemia, unspecified (4) Aortic valve stenosis Current visit: No Status: Chronic Qualifiers: Cardiac valve disease etiology: etiology unspecified Qualified Code(s): I35.0 - Nonrheumatic aortic (valve) stenosis Category: Medical Code(s): I35.0 - Nonrheumatic aortic (valve) stenosis (5) CAD (coronary artery disease) Current visit: No Status: Chronic Qualifiers: Category: Medical Code(s): I25.10 - Atherosclerotic heart disease of [place] coronary artery without angina pectoris (6) Paroxysmal A-fib Current visit: No Status: Chronic Category: Medical Code(s): I48.0 - Paroxysmal atrial fibrillation (7) Pulmonary emphysema Current visit: No Status: Chronic Qualifiers: Emphysema type: other Qualified Code(s): J43.8 - Other emphysema Category: Medical Code(s): J43.9 - Emphysema, unspecified (8) Tobacco use Current visit: No Status: Chronic Category: Social Hx Code(s): Z72.0 - Tobacco use (9) Cholelithiasis Current visit: Yes Status: Acute Category: Medical Code(s): K80.20 - Calculus of gallbladder without cholecystitis without obstruction - Assessment and plan all Dx Assessment and Plan for all problems:: Colonoscopy tomorrow. Likely discharge tomorrow afternoon. Plavix has been held. Bowel prep will start this evening. Patient is on clear liquids at this time. She will be n.p.o. after midnight
--- NOTE | 2017-04-21 09:55 | P.PN_ITS ---
Subjective Date: 04/21/17 Time: 08:30 Principal diagnosis: GI bleed Interval history: 66 yo WF undergoing workup for GI bleed. To have colonoscopy tomorrow. Cardiac status stable at this time. Currently off antiplatelets and anticoagulants except daily dose of lovenox due to recurrent GI bleed and need for transfusions. Review of Systems - *Cardiovascular Denies chest pain - *Respiratory Denies shortness of breath - *Gastrointestinal Denies abdominal pain - *Neurologic Reports weakness Meds Home Medications Medication Instructions Recorded Confirmed Type Albuterol Sulfate [Albuterol 2.5 mg IH QID 03/21/17 04/16/17 History 0.083% 2.5mg/3mL neb] Benazepril HCl 20 mg PO BID 03/21/17 04/16/17 History Budesonide/Formoterol Fumarate 2 puffs IH BID 03/21/17 04/16/17 History [Symbicort 160-4.5 Mcg Inhaler] Clopidogrel Bisulfate [Plavix 75mg 75 mg PO DAILY 03/21/17 04/16/17 History Tab] Doxepin HCl [Sinequan 10mg capsule] 10 mg PO HS 03/21/17 04/16/17 History Escitalopram Oxalate 20 mg PO DAILY 03/21/17 04/16/17 History Furosemide [Furosemide 40MG tAB] 40 mg PO BID 03/21/17 04/16/17 History Montelukast Sodium [Montelukast 10 mg PO DAILY 03/21/17 04/16/17 History 10mg Tab] Pravastatin Sodium 80 mg PO HS 03/21/17 04/16/17 History Sennosides/Docusate Sodium [Stool 1 each PO HS 03/21/17 04/16/17 History Softener Tablet] Spironolactone [Spironolactone 25 mg PO DAILY 03/21/17 04/16/17 History 25mg Tab] Tiotropium [place] [Spiriva 1 cap IH DAILY 03/21/17 04/16/17 History 18mcg/puff inhaler] rivaroxaban 15 mg tablet 15 mg PO DAILY tab 03/31/17 04/16/17 History Amlodipine Besylate [Norvasc 5mg 5 mg PO DAILY 04/05/17 04/16/17 History tablet] pantoprazole 40 mg tablet,delayed 40 mg PO QDAY 04/12/17 04/16/17 History release Allergies Allergy/AdvReac Type Severity Reaction Status Date / Time levofloxacin [From Levaquin] Allergy Mild Verified 04/16/17 14:04 Exam Vital signs and Labs for Last 24 Hours: Temp Pulse Resp BP Pulse Ox 97.2 F L 60 18 123/53 99 04/21/17 07:27 04/21/17 09:36 04/21/17 07:27 04/21/17 07:27 04/21/17 07:27 Laboratory Results - last 24 hr 04/21/17 06:10: WBC 5.3, RBC 3.21 L, Hgb 9.8 L, Hct 30.2 L, MCV 93.9, MCH 30.5, MCHC 32.5, RDW 14.8, Plt Count 227, MPV 9.4, Neut % (Auto) 48.2, Lymph % (Auto) 39.2, [place] % (Auto) 8.6, Eos % (Auto) 3.1, Baso % (Auto) 0.8, Neut # (Auto) 2.5 , Lymph # (Auto) 2.1, [place] # (Auto) 0.5, Eos # (Auto) 0.2, Baso # (Auto) 0.0 I & O for Last 24 hours: Intake & Output 04/18/17 04/19/17 04/20/17 04/21/17 11:59 11:59 11:59 11:59 Intake Total 720 / 720 600 / 600 740 / 740 720 / 720 Output Total 200 / 200 600 / 600 1280 / 1280 1080 / 1080 Balance 520 / 520 0 / 0 -540 / -540 -360 / -360 Weight 145 lb 9 oz 145 lb 8.998 oz - *Routine Respiratory Exam Present: CTA bilaterally - *Routine Cardiovascular Exam Present: RRR Plan - Patient/Caregiver Discharge Instructions Additional Instructions: Continue current meds. Will decide on restarting plavix and Xarelto after GI workup. - Follow Up Plan
--- NOTE | 2017-04-21 17:15 | PC.NURSE ---
on assessment lungs were clear, bowel sounds and heart sounds normal. v/s/s. A&O x3. pt has stated no complaints this shift. ambulating in room independently throughout day without difficulty. colonoscopy prep has been started and explained to pt. pt did state that she is nervous about the procedure. addressed questions about it. call light in reach. nonskids on. will continue to monitor pt condition.
--- NOTE | 2017-04-21 19:05 | PC.NURSE ---
report given to panda mojica rn
[2017-04-22] VITALS (15 sets, daily range): BP systolic 70–116; BP diastolic 30–56; PULSE 51–69; RESP 16–20; TEMP 36.7–36.9; O2SAT 92–99
--- NOTE | 2017-04-22 04:03 | PC.NURSE ---
no changes noted from previous assessment, pt seemed nervous about her colonoscopy scheduled later in the day, pt tolerating bowel prep well, bowel sounds are active x4 quads, scattered expiratory wheezes noted, pt is maintaining O2 sats at or above 90 on 2 L NC, pt denies pain and SOA, pt has rested well this shift, no acute distress noted at this time, call light in reach, will continue to monitor
[2017-04-22 06:33] LABS: Basophils % 0.7 % (0.1-2.0); Eosinophils # 0.2 K/mm3 (0.0-0.4); Eosinophils % 2.8 % (0.1-12.0); Hematocrit 31.2 % (37.0-47.0); Hemoglobin 10.1 g/dL (12.2-16.2); Lymphocytes # 2.1 K/mm3 (0.7-4.5); Lymphocytes % 37.2 K/mm3 (10-50); Mean Corpuscular HGB Conc 32.5 g/dL (31.8-35.4); Mean Corpuscular Hemoglobin 30.4 pg (27.0-31.2); Mean Corpuscular Volume 93.5 fl (81-99); Mean Platelet Volume 8.5 fl (7.4-10.4); Monocytes # 0.5 K/mm3 (0.1-1.0); Monocytes % 8.5 % (1.7-9.3); Neutrophils # 2.8 K/mm3 (1.8-7.8); Neutrophils % 50.8 % (37.0-80.0); Platelet Count 247 K/mm3 (142-424); Red Blood Count 3.33 M/mm3 (4.20-5.40); Red Cell Distribution Width 14.8 % (11.5-17.5); White Blood Count 5.5 K/mm3 (4.8-10.8)
--- NOTE | 2017-04-22 07:15 | P.PN_ITS ---
Internal Medicine - PN: Subj *Date: 04/22/17 *Time: 07:13 Interval history: Patient has no complaints this morning. She is scheduled for colonoscopy Exam Vital signs and Labs for Last 24 Hours: Temp Pulse Resp BP Pulse Ox 98.2 F 55 L 18 110/50 97 04/22/17 04:00 04/22/17 06:04 04/22/17 04:00 04/22/17 04:00 04/22/17 06:04 Laboratory Results - last 24 hr 04/22/17 06:15: WBC 5.5, RBC 3.33 L, Hgb 10.1 L, Hct 31.2 L, MCV 93.5, MCH 30.4 , MCHC 32.5, RDW 14.8, Plt Count 247, MPV 8.5, Neut % (Auto) 50.8, Lymph % (Auto ) 37.2, [place] % (Auto) 8.5, Eos % (Auto) 2.8, Baso % (Auto) 0.7, Neut # (Auto) 2.8, Lymph # (Auto) 2.1, [place] # (Auto) 0.5, Eos # (Auto) 0.2, Baso # (Auto) 0.0 I & O for Last 24 hours: Intake & Output 04/19/17 04/20/17 04/21/17 04/22/17 11:59 11:59 11:59 11:59 Intake Total 600 / 600 740 / 740 720 / 720 1200 / 1200 Output Total 600 / 600 1280 / 1280 1080 / 1080 500 / 500 Balance 0 / 0 -540 / -540 -360 / -360 700 / 700 Weight 145 lb 8.998 oz Narrative: She is in no distress. Oxygen is in place. Lungs are clear. Heart has a regular rate and rhythm. Abdomen is soft Assessment and Plan (1) Upper GI bleed Current visit: No Status: Acute Category: Medical Code(s): K92.2 - Gastrointestinal hemorrhage, unspecified (2) Blood loss anemia Current visit: Yes Status: Acute Category: Medical Code(s): D50.0 - Iron deficiency anemia secondary to blood loss (chronic) (3) Anemia Current visit: No Status: Acute Category: Medical Code(s): D64.9 - Anemia , unspecified (4) Aortic valve stenosis Current visit: No Status: Chronic Qualifiers: Cardiac valve disease etiology: etiology unspecified Qualified Code(s): I35.0 - Nonrheumatic aortic (valve) stenosis Category: Medical Code(s): I35.0 - Nonrheumatic aortic (valve) stenosis (5) CAD (coronary artery disease) Current visit: No Status: Chronic Qualifiers: Category: Medical Code(s): I25.10 - Atherosclerotic heart disease of [place] coronary artery without angina pectoris (6) Paroxysmal A-fib Current visit: No Status: Chronic Category: Medical Code(s): I48.0 - Paroxysmal atrial fibrillation (7) Pulmonary emphysema Current visit: No Status: Chronic Qualifiers: Emphysema type: other Qualified Code(s): J43.8 - Other emphysema Category: Medical Code(s): J43.9 - Emphysema, unspecified (8) Tobacco use Current visit: No Status: Chronic Category: Social Hx Code(s): Z72.0 - Tobacco use (9) Cholelithiasis Current visit: Yes Status: Acute Category: Medical Code(s): K80.20 - Calculus of gallbladder without cholecystitis without obstruction - Assessment and plan all Dx Assessment and Plan for all problems:: Colonoscopy today. Likely discharge later today. Due to her recent stenting she will need to continue her aspirin and Plavix as well as Xarelto. Cardiology has suggested left atrial appendage closure which is reasonable. If colonoscopy is negative for any source of bleeding patient will need capsule endoscopy to rule out small bowel source.
--- NOTE | 2017-04-22 11:42 | HMH.CNCARD ---
[facility] History Medical History: Reports:: Anxiety, Asthma, Atherosclerotic Heart Disease, Atrial Fibrillation, Chronic Obstructive Pulmonary Disease (COPD), Coronary Artery Disease, Cerebrovascular Accident, Gastrointestinal Bleed, Heart Murmur, Hyperlipidemia, Hypertension, Lung Disease, Transient Ischemic Attacks (TIA), Valvular Heart Disease Denies:: Cancer, Diabetes Mellitus Type 1, Diabetes Mellitus Type 2, MRSA Other Medical History: Reports: Anemia, Cataracts (cataract removal both eyes) Laterality Cases: Bilateral: Cataract Other Surgeries: Yes: Coronary Stent, Other (cyst removed from face) Amputation: No Fractures: No - *Social History Educational Level: Attended High School Smoking Status: Current every day smoker Tobacco Type: cigarettes # Packs/Day (cigarettes): 1 Alcohol Intake: never Alcohol Intake Frequency:: other Substance Use Type: denies use Occupational Status: retired Housing: house Household Members: spouse - Psychiatric History Expresses thoughts of harming self/others: None Suicide Plan Description: No Plan Pschychiatric History:: Reports:: Anxiety *Family Hx:: Heart Attack, Coronary Artery Disease, Diabetes, Hypertension Meds Home Medications Medication Instructions Recorded Confirmed Type Albuterol Sulfate [Albuterol 2.5 mg IH QID 03/21/17 04/16/17 History 0.083% 2.5mg/3mL neb] Benazepril HCl 20 mg PO BID 03/21/17 04/16/17 History Budesonide/Formoterol Fumarate 2 puffs IH BID 03/21/17 04/16/17 History [Symbicort 160-4.5 Mcg Inhaler] Clopidogrel Bisulfate [Plavix 75mg 75 mg PO DAILY 03/21/17 04/16/17 History Tab] Doxepin HCl [Sinequan 10mg capsule] 10 mg PO HS 03/21/17 04/16/17 History Escitalopram Oxalate 20 mg PO DAILY 03/21/17 04/16/17 History Furosemide [Furosemide 40MG tAB] 40 mg PO BID 03/21/17 04/16/17 History Montelukast Sodium [Montelukast 10 mg PO DAILY 03/21/17 04/16/17 History 10mg Tab] Pravastatin Sodium 80 mg PO HS 03/21/17 04/16/17 History Sennosides/Docusate Sodium [Stool 1 each PO HS 03/21/17 04/16/17 History Softener Tablet] Spironolactone [Spironolactone 25 mg PO DAILY 03/21/17 04/16/17 History 25mg Tab] Tiotropium [place] [Spiriva 1 cap IH DAILY 03/21/17 04/16/17 History 18mcg/puff inhaler] rivaroxaban 15 mg tablet 15 mg PO DAILY tab 03/31/17 04/16/17 History Amlodipine Besylate [Norvasc 5mg 5 mg PO DAILY 04/05/17 04/16/17 History tablet] pantoprazole 40 mg tablet,delayed 40 mg PO QDAY 04/12/17 04/16/17 History release Allergies Allergy/AdvReac Type Severity Reaction Status Date / Time levofloxacin [From [facility]] Allergy Mild Verified 04/16/17 14:04 Review of Systems - *Neurologic Reports weakness Exam Vital signs and Labs for Last 24 Hours: Temp Pulse Resp BP Pulse Ox 98.4 F 57 L 18 106/54 98 04/22/17 08:00 04/22/17 08:00 04/22/17 08:00 04/22/17 08:00 04/22/17 08:00 Laboratory Results - last 24 hr 04/22/17 06:15: WBC 5.5, RBC 3.33 L, Hgb 10.1 L, Hct 31.2 L, MCV 93.5, MCH 30.4, MCHC 32.5, RDW 14.8, Plt Count 247, MPV 8.5, Neut % (Auto) 50.8, Lymph % (Auto) 37.2, [place] % (Auto) 8.5, Eos % (Auto) 2.8, Baso % (Auto) 0.7, Neut # (Auto) 2.8, Lymph # (Auto) 2.1, [place] # (Auto) 0.5, Eos # (Auto) 0.2, Baso # (Auto) 0.0 I & O for Last 24 hours: Intake & Output 04/19/17 04/20/17 04/21/17 04/22/17 11:59 11:59 11:59 11:59 Intake Total 600 / 600 740 / 740 720 / 720 1200 / 1200 Output Total 600 / 600 1280 / 1280 1080 / 1080 500 / 500 Balance 0 / 0 -540 / -540 -360 / -360 700 / 700 Weight 145 lb 8.998 oz Assessment and Plan (1) Upper GI bleed Current visit: No Status: Acute Category: Medical Code(s): K92.2 - Gastrointestinal hemorrhage, unspecified (2) Blood loss anemia Current visit: Yes Status: Acute Category: Medical Code(s): D50.0 - Iron deficiency anemia secondary to blood loss (chronic) (3) Anemia Current visit: No Status: Acute Category: Medical Code(s): D64.
--- NOTE | 2017-04-22 12:30 | HMH.PROC ---
[facility] Procedure Note Procedure Note:: Colonoscopy Procedure Report: Colonoscopy with cold and hot snare polypectomy Endoscopist: Waldemar Uribe II, MD Referring physician: Adam Newby MD/Madi Pretty MD Date of Procedure: April 22, 2017 Equipment: Olympus 180 variable stiffness pediatric colonoscope Sedation: MAC sedation Indication: Mrs. Scanlon is a 66-year-old female with melanotic stools. She came in with a hemoglobin of 7.9 and received 2 units of PRBCs. Her hemoglobin and hematocrit did improve to 10.6 and 32.6. She reports no hematemesis. She reports no melena, hematochezia or weight loss. She is on aspirin, Plavix and Xarelto because of a coronary stent placement. She has had diarrhea for the last 3 days but mostly is regular. The patient's CAT scan of the abdomen and pelvis show some enterocolitis. The CAT scan also showed evidence of common bile duct stones. The patient has had fatigue, weakness and malaise. Her EGD on Tuesday showed mild gastritis and no source of bleeding. She has never had a colonoscopy. She reports no family history. Procedure: Prior to the procedure, a history and physical exam was performed, and patient's medications and allergies were reviewed. The risks, benefits and alternatives of the sedation and procedure were discussed with the patient. All questions were answered and informed consent was obtained. The patient was brought to the procedure room. Patient identification and proposed procedure were verified by the physician and the nurse. The patient was placed in a left lateral decubitus position and the scope was passed under direct vision. Throughout the procedure, the patient's blood pressure, pulse, and oxygen saturations were monitored continuously. The colonoscopy was accomplished without difficulty. The patient tolerated the procedure well. Findings: On digital rectal examination there was normal rectal tone. There were no external hemorrhoids. The colonoscope was introduced through the anal canal to the rectum and advanced to the cecum. The ileocecal valve and appendiceal orifice were identified. The scope was advanced a short distance into the ileum which appeared grossly normal. The scope was then withdrawn into the colon. There were 11 colon polyps identified in the cecum ?3, transverse ?3, descending ?3 and sigmoid ?2. These ranged in size from 5-17 mm and were all removed via cold snare polypectomy except for the largest sigmoid polyp that was pedunculated and 17 mm was removed via snare cautery. The remaining cecum, ascending, transverse, descending, sigmoid and rectum were grossly normal. There were no other mucosal abnormalities identified. Upon retroflexion within the rectum there were grade 1 internal hemorrhoids. Impression: 1. Colonic polyps ?11 2. Grade 1 internal hemorrhoids Plan: Based upon the size and adenomatous nature of all of these polyps, would recommend repeat screening/surveillance colonoscopy again in 1 year. I do feel that 1 or more of these polyps may be advanced adenomatous polyps (tubulovillous histology). It is possible that she has had some chronic GI blood loss from polyps but I would repeat Hemoccult testing in 4-6 weeks. If she remains Hemoccult positive, I would recommend video capsule enteroscopy.
--- NOTE | 2017-04-22 12:34 | P.PCN_ITS ---
[facility] Procedure Note Procedure Note:: Colonoscopy Procedure Report: Colonoscopy with cold and hot snare polypectomy Endoscopist: Waldemar Uribe II, MD Referring physician: Adam Newby MD/Madi Pretty MD Date of Procedure: April 22, 2017 Equipment: Olympus 180 variable stiffness pediatric colonoscope Sedation: MAC sedation Indication: Mrs. Scanlon is a 66-year-old female with melanotic stools. She came in with a hemoglobin of 7.9 and received 2 units of PRBCs. Her hemoglobin and hematocrit did improve to 10.6 and 32.6. She reports no hematemesis. She reports no melena, hematochezia or weight loss. She is on aspirin, Plavix and Xarelto because of a coronary stent placement. She has had diarrhea for the last 3 days but mostly is regular. The patient's CAT scan of the abdomen and pelvis show some enterocolitis. The CAT scan also showed evidence of common bile duct stones. The patient has had fatigue, weakness and malaise. Her EGD on Tuesday showed mild gastritis and no source of bleeding. She has never had a colonoscopy. She reports no family history. Procedure: Prior to the procedure, a history and physical exam was performed, and patient' s medications and allergies were reviewed. The risks, benefits and alternatives of the sedation and procedure were discussed with the patient. All questions were answered and informed consent was obtained. The patient was brought to the procedure room. Patient identification and proposed procedure were verified by the physician and the nurse. The patient was placed in a left lateral decubitus position and the scope was passed under direct vision. Throughout the procedure, the patient's blood pressure, pulse, and oxygen saturations were monitored continuously. The colonoscopy was accomplished without difficulty. The patient tolerated the procedure well. Findings: On digital rectal examination there was normal rectal tone. There were no external hemorrhoids. The colonoscope was introduced through the anal canal to the rectum and advanced to the cecum. The ileocecal valve and appendiceal orifice were identified. The scope was advanced a short distance into the ileum which appeared grossly normal. The scope was then withdrawn into the colon. There were 11 colon polyps identified in the cecum ?3, transverse ?3 , descending ?3 and sigmoid ?2. These ranged in size from 5-17 mm and were all removed via cold snare polypectomy except for the largest sigmoid polyp that was pedunculated and 17 mm was removed via snare cautery. The remaining cecum, ascending, transverse, descending, sigmoid and rectum were grossly normal. There were no other mucosal abnormalities identified. Upon retroflexion within the rectum there were grade 1 internal hemorrhoids. Impression: 1. Colonic polyps ?11 2. Grade 1 internal hemorrhoids Plan: Based upon the size and adenomatous nature of all of these polyps, would recommend repeat screening/surveillance colonoscopy again in 1 year. I do feel that 1 or more of these polyps may be advanced adenomatous polyps ( tubulovillous histology). It is possible that she has had some chronic GI blood loss from polyps but I would repeat Hemoccult testing in 4-6 weeks. If she remains Hemoccult positive, I would recommend video capsule enteroscopy.
--- NOTE | 2017-04-22 13:51 | HMH.DCSUM ---
General - General Admission date: 04/17/17 Discharge date: 04/22/17 HPI HPI: 66-year-old female presented to the emergency department with complaint of black tarry stools and lightheadedness. Patient has already been hospitalized 3 times at this facility since late February for the following reasons: Syncope and coronary artery disease with stenting of RCA, atrial fibrillation with rapid ventricular response, symptomatic anemia requiring blood transfusion. Yesterday apparently the patient was seeing her primary care physician and mentioned that she had been passing some black stools. Patient is on aspirin, Plavix, Xarelto and he became concerned about possible anemia due to associated weakness. Patient was advised to come to the emergency department here. In the emergency department she was found to be mildly anemic with a hemoglobin of 7.9 and had dark tarry stools with Hemoccult positive testing. CT scan of the abdomen was performed, although the patient denies any abdominal pain, which showed some enterocolitis. Patient denies any difficulty with appetite or passing stools. She denies fevers or chills. Incidental findings on CT scan also included some common bile duct stones. Patient was admitted and transfused 2 units of packed red blood cells. At her last hospitalization 2 weeks ago she was transfused and discharged for outpatient follow-up for scopes. She has yet to have EGD or colonoscopy. She has never had a colonoscopy. This morning patient states she feels well. She notices improvement in malaise since transfusion. She reports the black stools have been present for approximately 2 weeks Objective Vital signs: Temp Pulse Resp BP Pulse Ox 98.2 F 67 18 114/43 93 L 04/22/17 13:45 04/22/17 13:45 04/22/17 13:45 04/22/17 13:45 04/22/17 13:45 Hospital Course Hospital Course: Patient was admitted and transfused 2 units of packed red blood cells. On April 18 she underwent endoscopy which did not reveal a source of bleeding. Anticoagulants were withheld during the week and patient underwent colonoscopy on April 22. She had 11 polyps removed. After colonoscopy patient was discharged home. H&H remained stable throughout the week and she did not require any further blood transfusion. Anticoagulants will be restarted at discharge. Dr. Uribe will follow up on pathology results of the 11 polyps. I contacted the patient's primary care provider and informed him of the events of her hospitalization. She will follow up with him in approximately 10 days. Results Labs on day of discharge: Labs from last 24 hours 04/22/17 06:15 WBC 5.5 RBC 3.33 L Hgb 10.1 L Hct 31.2 L MCV 93.5 MCH 30.4 MCHC 32.5 RDW 14.8 Plt Count 247 MPV 8.5 Neut % (Auto) 50.8 Lymph % (Auto) 37.2 [place] % (Auto) 8.5 Eos % (Auto) 2.8 Baso % (Auto) 0.7 Neut # (Auto) 2.8 Lymph # (Auto) 2.1 [place] # (Auto) 0.5 Eos # (Auto) 0.2 Baso # (Auto) 0.0 DS: Diagnosis - Discharge Diagnosis (1) Upper GI bleed Status: Resolved (2) Blood loss anemia Status: Resolved (3) Anemia Status: Chronic (4) Aortic valve stenosis Status: Chronic (5) CAD (coronary artery disease) Status: Chronic (6) Paroxysmal A-fib Status: Chronic (7) Pulmonary emphysema Status: Chronic (8) Tobacco use Status: Chronic (9) Cholelithiasis Status: Chronic Meds Home Medications Medication Instructions Recorded Confirmed Type Albuterol Sulfate [Albuterol 2.5 mg IH QID 03/21/17 04/16/17 History 0.083% 2.5mg/3mL neb] Benazepril HCl 20 mg PO BID 03/21/17 04/16/17 History Budesonide/Formoterol Fumarate 2 puffs IH BID 03/21/17 04/16/17 History [Symbicort 160-4.5 Mcg Inhaler] Clopidogrel Bisulfate [Plavix 75mg 75 mg PO DAILY 03/21/17 04/16/17 History Tab] Doxepin HCl [Sinequan 10mg capsule] 10 mg PO HS 03/21/17 04/16/17 History Escitalopram Oxalate 20 mg PO
--- NOTE | 2017-04-22 13:54 | P.DS_ITS ---
General - General Admission date: 04/17/17 Discharge date: 04/22/17 HPI HPI: 66-year-old female presented to the emergency department with complaint of black tarry stools and lightheadedness. Patient has already been hospitalized 3 times at this facility since late February for the following reasons: Syncope and coronary artery disease with stenting of RCA, atrial fibrillation with rapid ventricular response, symptomatic anemia requiring blood transfusion. Yesterday apparently the patient was seeing her primary care physician and mentioned that she had been passing some black stools. Patient is on aspirin, Plavix, Xarelto and he became concerned about possible anemia due to associated weakness. Patient was advised to come to the emergency department here. In the emergency department she was found to be mildly anemic with a hemoglobin of 7.9 and had dark tarry stools with Hemoccult positive testing. CT scan of the abdomen was performed, although the patient denies any abdominal pain, which showed some enterocolitis. Patient denies any difficulty with appetite or passing stools. She denies fevers or chills. Incidental findings on CT scan also included some common bile duct stones. Patient was admitted and transfused 2 units of packed red blood cells. At her last hospitalization 2 weeks ago she was transfused and discharged for outpatient follow-up for scopes. She has yet to have EGD or colonoscopy. She has never had a colonoscopy. This morning patient states she feels well. She notices improvement in malaise since transfusion. She reports the black stools have been present for approximately 2 weeks Objective Vital signs: Temp Pulse Resp BP Pulse Ox 98.2 F 67 18 114/43 93 L 04/22/17 13:45 04/22/17 13:45 04/22/17 13:45 04/22/17 13:45 04/22/17 13:45 Hospital Course Hospital Course: Patient was admitted and transfused 2 units of packed red blood cells. On April 18 she underwent endoscopy which did not reveal a source of bleeding. Anticoagulants were withheld during the week and patient underwent colonoscopy on April 22. She had 11 polyps removed. After colonoscopy patient was discharged home. H&H remained stable throughout the week and she did not require any further blood transfusion. Anticoagulants will be restarted at discharge. Dr. Uribe will follow up on pathology results of the 11 polyps. I contacted the patient's primary care provider and informed him of the events of her hospitalization. She will follow up with him in approximately 10 days. Results Labs on day of discharge: Labs from last 24 hours 04/22/17 06:15 WBC 5.5 RBC 3.33 L Hgb 10.1 L Hct 31.2 L MCV 93.5 MCH 30.4 MCHC 32.5 RDW 14.8 Plt Count 247 MPV 8.5 Neut % (Auto) 50.8 Lymph % (Auto) 37.2 [place] % (Auto) 8.5 Eos % (Auto) 2.8 Baso % (Auto) 0.7 Neut # (Auto) 2.8 Lymph # (Auto) 2.1 [place] # (Auto) 0.5 Eos # (Auto) 0.2 Baso # (Auto) 0.0 DS: Diagnosis - Discharge Diagnosis (1) Upper GI bleed Status: Resolved (2) Blood loss anemia Status: Resolved (3) Anemia Status: Chronic (4) Aortic valve stenosis Status: Chronic (5) CAD (coronary artery disease) Status: Chronic (6) Paroxysmal A-fib Status: Chronic (7) Pulmonary emphysema Status: Chronic
== END 2017-04-22 15:00 | disposition home or self-care (01) | DRG 378 ==
LOC: ER 17:52 → 2ND 18:26
PROVIDERS: Internal Medicine Gastroenterology; Admitting Provider Family Medicine; Emergency Provider General Practice; Family Provider Family Medicine; PCP Family Medicine; Visit Provider Family Medicine
PROC: 0DJ08ZZ Inspection of Upper Intestinal Tract, Via Natural or Artificial Opening Endoscopic (ICD-10-PCS; CPT 43235; principal; 2017-04-18 09:00)
PROC: 0DJD8ZZ Inspection of Lower Intestinal Tract, Via Natural or Artificial Opening Endoscopic (ICD-10-PCS; CPT 45378; principal; 2017-04-22 10:00)
DX: K92.2 Gastrointestinal hemorrhage, unspecified (principal); D62 Acute posthemorrhagic anemia; I48.0 Paroxysmal atrial fibrillation; J43.9 Emphysema, unspecified; E78.5 Hyperlipidemia, unspecified; F17.210 Nicotine dependence, cigarettes, uncomplicated; F41.9 Anxiety disorder, unspecified; I25.10 Atherosclerotic heart disease of native coronary artery without angina pectoris; K52.9 Noninfective gastroenteritis and colitis, unspecified; I35.0 Nonrheumatic aortic (valve) stenosis; K63.5 Polyp of colon; K29.50 Unspecified chronic gastritis without bleeding; K80.20 Calculus of gallbladder without cholecystitis without obstruction; K64.8 Other hemorrhoids; Z95.5 Presence of coronary angioplasty implant and graft; Z79.01 Long term (current) use of anticoagulants; Z79.02 Long term (current) use of antithrombotics/antiplatelets; Z79.899 Other long term (current) drug therapy; Z88.8 Allergy status to other drugs, medicaments and biological substances; Z86.73 Personal history of transient ischemic attack (TIA), and cerebral infarction without residual deficits; Z82.49 Family history of ischemic heart disease and other diseases of the circulatory system; Z83.3 Family history of diabetes mellitus
CPT/HCPCS: 36415; 74176; 74181; 80048; 80053; 80076; 82272; 82550; 82553; 84484; 85014; 85018; 85025; 86850; 88305; 93005; 93041; 94640; 94760; 94761; 99283; G0328; P9016

== ENCOUNTER 2017-05-30 07:53 | Day surgery (SDC) | payer MEDICARE, SELFPAY ==
[2017-05-30 08:14] VITALS: BP 145/74; PULSE 80; RESP 20; TEMP 36.6; O2SAT 100
--- NOTE | 2017-05-30 09:57 | SUR.OPER ---
pt tolerated procedure well. loop device placed by paco jeffries w/ a reading noted of 0.30.
[2017-05-30 10:02] VITALS: BP 140/68; PULSE 80; RESP 18; O2SAT 94
[2017-05-30 10:14] VITALS: BMI 26.5
--- NOTE | 2017-05-30 15:38 | HMH.LOOP ---
[facility] Loop Recorder Date: 05/30/17 Time: 10:00 Procedure Performed:: Implantation of Loop Recorder Indication:: Atrial fibrillation GI bleed Technique:: Patient was brought to the cardiac Supervisor Color Making. After informed consent obtained, 1% lidocaine with epinephrine was used to anesthetize the site along the left anterior aspect of the chest near the sternal border. Using the preformed scalpel, an incision was made and using the supplied preloaded apparatus, the loop recorder was placed subcutaneously without difficulty. Following the deployment of the loop recorder interrogation of the device was performed to ensure appropriate voltage was being detected (0.30 mV). Once this was verified, Steri-Strips were placed over the incision and the patient was prepped to discharge home. Patient tolerated the procedure well with minimal discomfort. Impression:: Successful implantation of loop recorder Serial Number:: [id number] Plan:: Routine postop care
--- NOTE | 2017-05-30 15:41 | P.PCN_ITS ---
[facility] Loop Recorder Date: 05/30/17 Time: 10:00 Procedure Performed:: Implantation of Loop Recorder Indication:: Atrial fibrillation GI bleed Technique:: Patient was brought to the cardiac Risk Advisor. After informed consent obtained, 1 % lidocaine with epinephrine was used to anesthetize the site along the left anterior aspect of the chest near the sternal border. Using the preformed scalpel, an incision was made and using the supplied preloaded apparatus, the loop recorder was placed subcutaneously without difficulty. Following the deployment of the loop recorder interrogation of the device was performed to ensure appropriate voltage was being detected (0.30 mV). Once this was verified , Steri-Strips were placed over the incision and the patient was prepped to discharge home. Patient tolerated the procedure well with minimal discomfort. Impression:: Successful implantation of loop recorder Serial Number:: [id number] Plan:: Routine postop care
== END 2017-05-30 09:50 | disposition home or self-care (01) ==
LOC: CATHLAB 07:54
PROVIDERS: Family Provider Family Medicine; PCP Family Medicine; Visit Provider Internal Medicine
PROC: 0JH602Z Insertion of Monitoring Device into Chest Subcutaneous Tissue and Fascia, Open Approach (ICD-10-PCS; principal; 2017-05-30 08:30)
DX: I48.0 Paroxysmal atrial fibrillation (principal); R55 Syncope and collapse; I35.0 Nonrheumatic aortic (valve) stenosis; Z79.899 Other long term (current) drug therapy; J44.9 Chronic obstructive pulmonary disease, unspecified; Z72.0 Tobacco use; I10 Essential (primary) hypertension; I65.23 Occlusion and stenosis of bilateral carotid arteries; R06.09 Other forms of dyspnea
CPT/HCPCS: 33282; C1764

== ENCOUNTER → 2017-06-13 13:08 | Outpatient (POV) | payer MEDICARE, SELFPAY ==
[2017-06-13 14:27] LABS: Basophils # 0.1 K/mm3 (0-0.2); Basophils % 0.7 % (0.1-2.0); Eosinophils # 0.1 K/mm3 (0.0-0.4); Eosinophils % 1.1 % (0.1-12.0); Hematocrit 36.2 % (37.0-47.0); Hemoglobin 11.7 g/dL (12.2-16.2); Lymphocytes # 2.6 K/mm3 (0.7-4.5); Lymphocytes % 34.6 K/mm3 (10-50); Mean Corpuscular HGB Conc 32.4 g/dL (31.8-35.4); Mean Corpuscular Hemoglobin 31.6 pg (27.0-31.2); Mean Corpuscular Volume 97.5 fl (81-99); Mean Platelet Volume 9.9 fl (7.4-10.4); Monocytes # 0.5 K/mm3 (0.1-1.0); Monocytes % 6.6 % (1.7-9.3); Neutrophils # 4.2 K/mm3 (1.8-7.8); Platelet Count 244 K/mm3 (142-424); Red Blood Count 3.71 M/mm3 (4.20-5.40); Red Cell Distribution Width 14.2 % (11.5-17.5); White Blood Count 7.4 K/mm3 (4.8-10.8)
[2017-06-13 14:46] LABS: Alanine Aminotransferase 26 U/L (12-78); Albumin Level 3.6 gm/dL (3.4-5.0); Alkaline Phosphatase 81 U/L (46-116); Aspartate Amino Transferase 30 U/L (15-37); Bilirubin,Total 0.5 mg/dL (0.2-1.0); Blood Urea Nitrogen 11 mg/dL (7-18); Calcium 9.5 mg/dL (8.5-10.1); Carbon Dioxide 39 mmol/L (21.0-32.0); Chloride 96 mmol/L (98-107); Creatinine,Serum 1.61 mg/dL (0.55-1.02); Estimated Glomerular Filt Rate 32 ml/min (>60); GFR (African American) 39 ML/MIN (>60); Globulin 3.6 gm/dl (1.3-3.2); Glucose 97 mg/dL (74-106); Sodium 142 mmol/L (136-145); Total Protein,Serum 7.2 gm/dL (6.4-8.2)
== END ==
PROVIDERS: Family Provider Family Medicine; PCP Family Medicine; Visit Provider Nurse Practitioner Acute Care
DX: K92.2 Gastrointestinal hemorrhage, unspecified (principal); B96.81 Helicobacter pylori [H. pylori] as the cause of diseases classified elsewhere
CPT/HCPCS: 36415; 80053; 85025

== ENCOUNTER → 2017-06-18 13:12 | Outpatient (REF) | payer MEDICARE, SELFPAY ==
[2017-06-23 14:36] LABS: Occult Blood,Stool Negative (Negative)
== END ==
LOC: LAB 13:12
PROVIDERS: Visit Provider Internal Medicine Gastroenterology
DX: D64.9 Anemia, unspecified (principal)
CPT/HCPCS: 82272; G0328

== ENCOUNTER → 2017-06-19 13:00 | Outpatient (REF) | payer MEDICARE, SELFPAY ==
[2017-06-23 14:36] LABS: Occult Blood,Stool Negative (Negative)
== END ==
LOC: LAB 13:00
PROVIDERS: Visit Provider Internal Medicine Gastroenterology
DX: D64.9 Anemia, unspecified (principal)
CPT/HCPCS: 82272; G0328

== ENCOUNTER → 2017-06-20 13:24 | Outpatient (REF) | payer MEDICARE, SELFPAY ==
[2017-06-23 14:36] LABS: Occult Blood,Stool Negative (Negative)
== END ==
LOC: LAB 13:24
PROVIDERS: Visit Provider Internal Medicine Gastroenterology
DX: D64.9 Anemia, unspecified (principal)
CPT/HCPCS: 82272; G0328

== ENCOUNTER → 2017-06-23 12:37 | Outpatient (CLI) | payer MEDICARE, SELFPAY ==
[2017-06-29 16:15] LABS: H. pylori Breath Test Negative (Negative)
== END ==
PROVIDERS: Visit Provider Nurse Practitioner Acute Care
DX: K92.2 Gastrointestinal hemorrhage, unspecified (principal); B96.81 Helicobacter pylori [H. pylori] as the cause of diseases classified elsewhere
CPT/HCPCS: 83013